=== PATIENT | female | born 1955 | race Caucasian/White ===

== ENCOUNTER 2022-11-19 09:20 | Observation (INO) ==
--- NOTE | 2022-10-22 09:40 | History & Physical Report ---
Date of Service October 22, 2022 date of surgery: 11/19/22 Procedure: Left Knee Poly Exchange Possible Revision of Total Knee Arthroplasty Surgeon: Jose Hernandes Assessment & Plan (1) Painful total knee replacement, left: Plan: Further care discussed with patient as well as with Dr. Hernandes, is recommended that patient undergo left knee polyethylene exchange with possible total knee arthroplasty given her exam, injury as well as CT scan findings. Tentative plan would be polyethylene exchange with evaluation of her implant at time of surgery. She otherwise has no other questions or concerns. Placed on aspirin 81 mg twice a day for 1 month postop DVT prophylaxis. Plan will be discharge with home health physical therapy follow-up in the office 2 weeks after surgery or sooner if she is having problems The risks and benefits have been discussed including, but not limited to, risk of infection, nerve injury, stiffness, loss of motion, failure to improve, etc. Reasonable outcomes and options of treatment were discussed. An explanation of appropriate alternatives to the procedure that may be advantageous were discussed and their risks and benefits, as well as the risks and benefits of not proceeding with treatment. I offered to answer any additional inquiries concerning the treatment involved. All the patient's questions were answered. The patient is agreeable, understanding of the treatment plan and alternatives, and wishes to proceed with the treatment plan. History of Present Illness Chief Complaint: left knee pain Primary Care Provider: Trina Dila DO Gloria is a pleasant 66-year-old female who presents for preop evaluation prior to left knee poly exchange with possible revision of her total knee arthroplasty. She initially had her knee replaced back in [address] Hernandes and was doing very well up until recently. In August of this past year she slipped and fell injuring her left knee. She was seen in the office x-rays did not show any obvious fractures or loosening of her implant, she underwent CT scan which showed possible fracture of her polyethylene post. I discussed with her the treatment options she would like to proceed with surgical intervention Allergies Allergy/AdvReac Type Severity Reaction Status Date / Time adhesive Allergy Unknown SKIN Verified 05/15/22 10:03 IRRITATION ciprofloxacin [From Cipro] Allergy Verified 05/15/22 10:03 metronidazole [From Flagyl] Allergy Verified 05/15/22 10:03 Sulfa (Sulfonamide Allergy Verified 05/15/22 10:03 Antibiotics) morphine AdvReac Severe SEVERE Verified 05/15/22 10:03 NAUSEA AND VOMITING Home Medications Medication Instructions Recorded Confirmed Type cholecalciferol (vitamin D3) 25 1,000 units PO DAILY #30 caps 04/22/19 05/15/22 Rx mcg (1,000 unit) capsule coenzyme Q10 200 mg capsule 200 mg PO DAILY 04/22/19 05/15/22 History cyanocobalamin (vitamin B-12) 1,000 mcg PO DAILY 04/22/19 05/15/22 History 1,000 mcg tablet,extended release omega-3 fatty acids [Fish Oil PO DAILY 08/01/19 05/15/22 History Concentrate] loratadine [Claritin] PO DAILY PRN 04/30/20 05/15/22 History fluticasone propionate 50 2 spray intranasal DAILY #16 grams 01/01/21 05/15/22 Rx mcg/actuation nasal spray,suspension celecoxib 200 mg capsule (Celebrex) 200 mg PO DAILY #90 caps 05/05/22 05/15/22 Rx glucosamine sulfate 2KCl 1,000 mg 1,000 mg PO DAILY 05/05/22 05/15/22 History tablet levothyroxine 50 mcg tablet 50 mcg PO DAILY #90 tabs 05/05/22 05/15/22 Rx Past Med/Surg History Medical History Acid reflux Allergic rhinitis Benign paroxysmal positional vertigo Generalized osteoarthritis of multiple sites Hypothyroidism Migraine headache Osteopenia Seasonal allergies Surgical History H/O section H/O lumpectomy History of total left knee replacement (2009) Left total knee arthroplasty with Gonzalez Nephew total joint arthroplasty utilizing sizes 4 femur, 2 tibia, 9 spacer posterior constrained, and 32 patella History of total right knee replacement (2002) Hx of hysterectomy (2010) d/t endometriosis S/P appendectomy S/P cholecystectomy S/P shoulder surgery (2007) R shoulder Family History Father Anxiety Cardiac disorder Diabetes Gallbladder disease Kidney disease Myocardial infarction age 65 Hypertension Heart disease Brother Anxiety Depression Kidney stone Mother Hypertension Dementia Grandmother Ovarian cancer age 85 Cancer Grandfather Hearing loss Denies family history of Colon cancer Prostate cancer No family history of adverse response to anesthesia No family history of bleeding disorder Allergies Breast cancer Stroke Asthma Social History Smoking Status: Never smoker Second Hand Exposure: No; Hx Alcohol Use: No Hx Substance Use: No Preferred Language: Marshallese Communication Ability: Effective Visual Impairment: No Limitations Hearing Ability: Normal Flying Ii Instructor Required: No Beliefs That Will Affect Care: None marital status: Current Living Situation: Spouse current occupational status: employed and retired current occupation: works academic department chair at [employer] How many Children do You have: 1 Feels Safe at Home: Yes Childhood Exposure to Second-Hand Smoke: No caffeine: Yes during the past year weight has: remained stable Dental Care, Regularly: Yes Physical Activity Frequency: Daily Seatbelt Use: always Sunscreen Use: No Review of Systems Review of Systems: All systems reviewed & are unremarkable except as noted in HPI & below Constitutional: no fever, no chills and no sweats Respiratory: no cough and no dyspnea Cardiovascular: no chest pain, no dyspnea and no orthopnea Gastrointestinal: no abdominal pain, no nausea and no vomiting Musculoskeletal: as per Subjective / HPI Physical Exam Constitutional: WD/WN, vitals as above no acute distress Respiratory: normal respiratory effort, lungs clear to auscultation no respiratory distress, no labored breathing and does not use accessory muscles Cardiovascular: RRR, no murmur, no edema Gastrointestinal (Abdomen): normal bowel sounds, soft, nontender, no hepatosplenomegaly Musculoskeletal: Left Knee Exam Ambulates with a limp, overall neutral alignment, there is no atrophy warmth or ecchymosis noted, mild effusion, maximum tenderness medial retinaculum. positive patellar Apprehension , no crepitation with motion, valgus stress Negative, Varus stress Negative, no Extensor lag, Pain with Active range of motion, also passive painful ROM, Range of motion 0/3/115. No pain with active/passive ROM of ankle. Lower Extremity Strength normal. Lower Extremity Neuro-vascular is normal Results & Data Results & Data ([facility]) Diagnostic Findings LEFT KNEE 3 VIEWS History: Left total knee arthroplasty. Degenerative arthritis. Postop. FINDINGS: The patient is status post a left total knee arthroplasty. The hardware is intact. No fracture or dislocation. IMPRESSION: Left total knee arthroplasty. No evidence for hardware complication.
--- NOTE | 2022-10-29 09:03 | PAT Medication Instructions ---
Medication Instructions Date of Service October 29, 2022 Home Medications Medication Instructions Recorded cholecalciferol (vitamin D3) 25 1,000 units PO DAILY #30 caps 04/22/19 mcg (1,000 unit) capsule fluticasone propionate 50 2 spray intranasal DAILY #16 grams 01/01/21 mcg/actuation nasal spray,suspension celecoxib 200 mg capsule (Celebrex) 200 mg PO DAILY #90 caps 05/05/22 levothyroxine 50 mcg tablet 50 mcg PO DAILY #90 tabs 05/05/22 cholecalciferol (vitamin D3) 25 mcg (1,000 unit) capsule 1,000 units PO DAILY coenzyme Q10 200 mg capsule 200 mg PO QAM cyanocobalamin (vitamin B-12) 1,000 mcg tablet,extended release 1,000 mcg PO QAM fluticasone propionate 50 mcg/actuation nasal spray,suspension 2 spray intranasal DAILY celecoxib 200 mg capsule (Celebrex) 200 mg PO DAILY levothyroxine 50 mcg tablet 50 mcg PO DAILY calcium 600 mg capsule 600 mg PO QPM loratadine 10 mg tablet (Claritin) 10 mg PO DAILY PRN Allergy Symptoms magnesium 200 mg tablet 400 mg PO QPM ASK your surgeon for instructions celecoxib 200 mg capsule (Celebrex) 200 mg PO DAILY STOP taking 2 weeks before surgery (or as soon as possible if surgery is within 2 weeks) coenzyme Q10 200 mg capsule 200 mg PO QAM DO NOT take the morning of surgery cholecalciferol (vitamin D3) 25 mcg (1,000 unit) capsule 1,000 units PO DAILY cyanocobalamin (vitamin B-12) 1,000 mcg tablet,extended release 1,000 mcg PO QAM loratadine 10 mg tablet (Claritin) 10 mg PO DAILY PRN Allergy Symptoms Take morning of surgery With a small sip of water, OTHERWISE NOTHING TO EAT OR DRINK AFTER MIDNIGHT: fluticasone propionate 50 mcg/actuation nasal spray,suspension 2 spray intranasal DAILY levothyroxine 50 mcg tablet 50 mcg PO DAILY Take evening before surgery calcium 600 mg capsule 600 mg PO QPM loratadine 10 mg tablet (Claritin) 10 mg PO DAILY PRN Allergy Symptoms (if needed) magnesium 200 mg tablet 400 mg PO QPM Other Notes If you have any questions please call us at [phone] or [phone] or [phone] or [phone]
--- NOTE | 2022-11-03 13:39 | Anesthesiology Consultation ---
Date of Service November 03, 2022 Assessment & Plan (1) Encounter for pre-operative examination: Chart Review Chart Review: Acceptable Risk for Surgery and Patient seen in Pre Admission Testing Pt not Same Day Joint candidate secondary to procedure type Per [facility] appt on 11/03/22, patient denies any recent travel or large group activities. Pt is NOT vaccinated for Covid. Will leave to surgeon's discretion if preop Covid testing needed. Educated on importance of using Covid precautions one week prior to surgery Teaching & Discussion Pre-Anesthesia Teaching/Discussion Notes: Instructed NPO after midnight before surgery,except medications with 15 cc of water. Medication instructions provided according to the [facility] guidelines. History Surgery Operation Date: 11/19/22 09:20 Proposed Procedures p Left Knee Poly Exchange Possible Revision of Total Knee Arthroplasty - Jose Hernandes DO Height/Weight Height: 5 ft 2 in Weight: 77.5 kg Allergies Allergy/AdvReac Type Severity Reaction Status Date / Time ciprofloxacin [From Cipro] Allergy Intermediate Hives Verified 10/28/22 13:31 metronidazole [From Flagyl] Allergy Intermediate Hives Verified 10/28/22 13:31 Sulfa (Sulfonamide Allergy Intermediate ANGIOEDEMA Verified 11/03/22 13:33 Antibiotics) adhesive Allergy Unknown SKIN Verified 10/28/22 13:31 IRRITATION morphine AdvReac Severe SEVERE Verified 10/28/22 13:31 NAUSEA AND VOMITING Medications Home Medications Medication Instructions Recorded Confirmed Last Taken cholecalciferol (vitamin D3) 25 1,000 units PO DAILY #30 caps 04/22/19 10/28/22 Unknown mcg (1,000 unit) capsule coenzyme Q10 200 mg capsule 200 mg PO QAM 04/22/19 10/28/22 Unknown cyanocobalamin (vitamin B-12) 1,000 mcg PO QAM 04/22/19 10/28/22 Unknown 1,000 mcg tablet,extended release fluticasone propionate 50 2 spray intranasal DAILY #16 grams 01/01/21 10/28/22 Unknown mcg/actuation nasal spray,suspension celecoxib 200 mg capsule (Celebrex) 200 mg PO DAILY #90 caps 05/05/22 10/28/22 Unknown levothyroxine 50 mcg tablet 50 mcg PO DAILY #90 tabs 05/05/22 10/28/22 Unknown calcium 600 mg capsule 600 mg PO QPM 10/28/22 10/28/22 Unknown loratadine 10 mg tablet (Claritin) 10 mg PO DAILY PRN Allergy Symptoms 10/28/22 10/28/22 Unknown magnesium 200 mg tablet 400 mg PO QPM 10/28/22 10/28/22 Unknown Past Medical History Medical History Acid reflux Well controlled and stable Hypothyroidism Migraine headache Nausea and vomiting after administration of anesthetic agent Osteopenia Exercise / Class Metabolic Activity II 4-5 Yardwork/Stairs/Walk up hill (one flight of stairs - no chest pain or SOB) Past Family History Family History Father Anxiety Cardiac disorder Diabetes Gallbladder disease Kidney disease Myocardial infarction age 65 Hypertension Heart disease Brother Anxiety Depression Kidney stone Mother Hypertension Dementia Grandmother Ovarian cancer age 85 Cancer Grandfather Hearing loss Denies family history of Colon cancer Prostate cancer No family history of adverse response to anesthesia No family history of bleeding disorder Allergies Breast cancer Stroke Asthma Past Surgical History Surgical History (Updated 11/03/22 @ 14:00 by Nazia Shields PA-C) H/O arthroscopic knee surgery Right knee- 1995, 2001 H/O section H/O lumpectomy History of hand surgery Left [facility] 2011 Right [facility] 2016 History of total left knee replacement (2009) Left total knee arthroplasty with Gonzalez Nephew total joint arthroplasty utilizing sizes 4 femur, 2 tibia, 9 spacer posterior constrained, and 32 patella History of total right knee replacement (2002) Hx of colonoscopy Hx of hysterectomy (2010) d/t endometriosis S/P appendectomy S/P cholecystectomy S/P shoulder surgery (2007) R shoulder Past Anesthesia History No Hx of Anesthesia Complications (with exception to PONV ) and No Family Hx of Anesthesia Complications History of PONV History of PONV and Hx of Motion Sickness Social History Smoking Status: Never smoker Do You Dip or Chew Tobacco: No Hx Alcohol Use: Yes alcohol intake frequency: holidays/special occasions only Hx Substance Use: No substance use type: does not use Review of Systems Hx of snoring- possible witnessed apnea- no hx of sleep study Patient denies chest pain, shortness of breath, dyspnea on exertion, cough, wheezing, palpitations. No hx of seizures, stroke, DC. No hx of blood clots or blood transfusions Physical Exam Vital Signs VITALS BP 144/76 P 64 TEMP 97.9 SP02 98% RESP 16 Constitutional no acute distress ENMT Mouth: no TMJ clicking Thyromental Distance: < 3.5 Finger Breadths (3.0) Mallampati Class: I Capped to bottom front tooth Neck neck extension not limited Respiratory normal respiratory effort; no respiratory distress Auscultation: lungs clear to auscultation bilaterally; no wheezes Cardiovascular Rate/Rhythm: regular rate and regular rhythm Heart Sounds: no murmur Vessels: no carotid bruit Musculoskeletal Spine: no pain with cervical ROM Extremities: extremities normal to inspection Psychiatric Orientation: alert Lab Results Anesthesia Preop Results Results Anesthesia Widget: WBC 10.06 K/ul (4.8-10.8) 11/03/22 Hgb 13.8 g/dl (12.0-16.0) 11/03/22 Hct 41.4 % (37.0-47.0) 11/03/22 Plt 393 K/uL (130-400) 11/03/22 Na 140 mmol/L (136-145) 11/03/22 K 4.2 mmol/L (3.5-5.1) 11/03/22 Cl 103 mmol/L (98-107) 11/03/22 CO2 35 mmol/L (21-32) H 11/03/22 BUN 18 mg/dl (6-23) 11/03/22 Creat 1.04 mg/dl (0.6-1.2) 11/03/22 Glucose Level 89 mg/dl (70-99(Fasting)) 11/03/22 PT 10.5 Seconds (9.0-12.0) 11/03/22 PTT 26.8 Seconds (21.0-31.0) 11/03/22 INR 1.0 (0.9-1.1) 11/03/22 HA1c 5.5 % (4.5-5.6) 11/03/22 Urine Color Yellow 11/03/22 Urine Appearance Clear (Clear) 11/03/22 Urine pH 7.0 (4.5-7.5) 11/03/22 Urine Specific [place] 1.009 (1.000-1.030) 11/03/22 Urine Protein Negative (Negative) 11/03/22 Urine Glucose (UA) Negative (Negative) 11/03/22 Urine Ketones Negative (Negative) 11/03/22 Urine Blood Negative (Negative) 11/03/22 Urine Nitrite Negative (Negative) 11/03/22 Urine Bilirubin Negative (Negative) 11/03/22 Urine Urobilinogen Negative (Negative) 11/03/22 Urine Leukocyte Esterase Negative (Negative) 11/03/22 Blood Type B Positive 11/03/22 Antibody Screen NEGATIVE 11/03/22 Testing Electrocardiogram Date: 11/03/22 Findings: + SB @ (59bpm) Otherwise normal EKG per cardio Chest X-Ray Date: 11/03/22 Findings: + NAD COVID-19 Risk Screen Screening Information COVID-19 Screen Date: 11/03/22 Exposure 21 Days Family/Household +COVID Last 21 Days: No Exposure 10 Days Any COVID Exposure Last 10 Days: No Symptoms Last 10 Days Experienced COVID Sx Last 10 Days: No + COVID 0-90 Days COVID + in Last 0-90 Days: No Risk Plan COVID Risk Plan: No Risk Identified Patient Education COVID Preop Screening Education Complete: Yes
[~2022-11-19 09:20] MED LIST: ACETAMINOPHEN 500 MG TAB PO SCH; BUPIVACAINE 0.25% 30 ML VIAL ONE; BUPIVACAINE 0.5 % 5 MG/1 ML PF 10ML VIAL ONE; CeleBREX 200 MG CAP PO SCH; FAMOTIDINE 20 MG TAB PO SCH; GABAPENTIN 600 MG DOSE PO SCH; LR 500ML BOLUS, THEN 15ML/HR IV SCH; METOCLOPRAMIDE HCL 10 MG TABLET PO SCH; ROPIVACAINE 0.5% HCL/PF 150 MG, BUPIVACAINE 0.75% MPF 20 ML, EPINEPHrine 0.15 MG, Ketor... INFIL SCH; ceFAZolin 2000MG 2,000 MG/15 ML SYR IV SCH; dexAMETHasone 4 MG TAB PO SCH
[2022-11-19] MEDS ORDERED: PROPOFOL IV EMULSION 10 MG/ML 20 ML VIAL IV ONE ×2 (09:57→12:49)
[2022-11-19] MEDS ORDERED: MIDAZOLAM HCL 1 MG/ML 2ML VIAL ONE (09:57)
[2022-11-19] MEDS ORDERED: TRANEXAMIC ACID / 0.7% NACL 1,000 MG/100 ML BAG IV ONE ×2 (10:52→11:00)
--- NOTE | 2022-11-19 11:00 | History & Physical Bridge Note ---
Date of Service November 19, 2022 History & Physical Bridge Note I have examined the patient, reviewed the History & Physical and in the interval since the performance of the History & Physical I have noted the following changes of clinical significance: no changes noted
[2022-11-19] MEDS ORDERED: ePHEDrine sulfate 50 MG/ML AMP IV PRN (11:39)
[2022-11-19] MEDS ORDERED: ATROPINE SULFATE 0.1 MG/ML 10ML SYR IV PRN (11:39)
[2022-11-19] MEDS ORDERED: fentaNYL citrate 100 MCG/2 ML VIAL IV PRN (11:39)
[2022-11-19] MEDS ORDERED: ONDANSETRON INJ 2 MG/ML 2 ML VIAL IV PRN ×2 (11:39→15:17)
--- NOTE | 2022-11-19 13:08 | Operative Report ---
Post Operative Report Pre & Post Diagnosis Operation Date: 11/19/22 11:40 Pre-Op Diagnosis: Painful total knee replacement, left Post-Op Diagnosis: Painful total knee replacement, left with broken polypost journey 1 total knee arthroplasty Gonzalez & Delfino Nolasco identified the patient and participated in the time-out.: Yes Procedure Operation Date: 11/19/22 11:40 Actual Procedures p Left Knee Poly Exchange of Total Knee Arthroplasty(Left) to size 13 x 6 left poly insert- Jose Hernandes DO Surgeon Jose Hernandes DO Virtualization Engineer LORA Roper Estimated Blood Loss 5 Findings Consistent with Post-Op Diagnosis Patient presents after previous undergoing a left total knee arthroplasty greater than left 10 years ago was doing remarkably well until suddenly felt a pop in her knee with instability and pain that occurred and that 1 incident she denies having any particular traumatic event to it her clinical examination preoperatively was consistent with that of a broken post she had no solid posterior drawer stop sign no palpable clunk she did have also laxity medially and laterally her x-rays were not consistent with that of loosening or other process Specimens Broken polypost Drains None Anesthesia Type MAC Spinal Regional Complications none Disposition Accompanied Patient To Recovery: No Disposition: Recovery Room Indications Patient presents with a clinical examination is that of a broken post and a small effusion with ongoing pain and instability Description of Procedure After initiation of regional anesthesia the left lower extremity subsequently prepped in sterile fashion for surgery of this type utilizing anterior midline incision in the region of the previous incision dissection carried down to the subcutaneous tissues meticulous hemostasis was obtained and maintained at all times a medial parapatellar incision was made the post and poly was evaluated there is complete 100% fracture of the post at the base which was sitting in the notch there was some delaminated polyethylene that was from floating freely within the knee joint the wound was irrigated the knee joint was irrigated up with a broken polywas removed the post was removed meticulous synovectomy the areas of synovitis was performed operative matter debris removed the tibial femoral and patellar components were all inspected notes of loosening was noted subsequently a trial to a size 13 was placed gave excellent stability and full extension mid flexion flexion medial lateral instability was corrected the posterior instability was corrected socially the final component was brought onto the field after thorough irrigation debridement lavage meticulous hemostasis of all synovial tissue the final poly was subsequently placed range of motion full extension flexion 145 degrees stability throughout all ranges including mid flexion subsequently the medial retinaculum closed #1 Vicryl subcu was closed with 2-0 Vicryl skin was closed with a running V lock and Greta sterile compressive dressing was placedDue to the complex nature of the procedure, the entire surgery was performed with the operational assistance of LORA Roper. The real estate administrative assistant, under direct supervision, was involved in the actual performance of all aspects of the surgical procedure including hemostasis, tissue retraction and incision, instrument management, patient positioning, and wound closure. I attest to the content of the Intraoperative Record and any orders documented therein. Any exceptions are noted below.
--- NOTE | 2022-11-19 15:01 | XRay Report ---
XR knee LT 1 or 2V routine HISTORY: 67 years-old Female Surgical Post Op left knee arthroplasty COMPARISON: None TECHNIQUE: 2 views of the left knee FINDINGS: Total joint arthroplasty with patellar resurfacing. Anterior midline skin hakan with expected posto perative soft tissue swelling and deep tissue air. No acute fracture, dislocation or opaque foreign b fredo. IMPRESSION: Total joint arthroplasty with expected postoperative changes. ACT 112: Negative or not required by law. The above report was generated using voice recognition software. It may contain grammatical, syntax o r spelling errors. Electronically signed by: Lincoln Hernandez M.D. 11/19/2022 3:00 PM
[2022-11-19] MEDS ORDERED: HYDROmorphone INJ 1 MG/ML SYRINGE IV PRN (15:17)
[2022-11-19] MEDS ORDERED: METOCLOPRAMIDE HCL INJ 5 MG/ML 2 ML VIAL IV PRN (15:17)
[2022-11-19] MEDS ORDERED: oxyCODONE HCL IR 5 MG TAB (IMMEDIATE RELEASE) PO PRN (15:17)
[2022-11-19] MEDS ORDERED: LORATADINE 10 MG TAB PO PRN (15:17)
[2022-11-19] MEDS ORDERED: NALOXONE HCL 0.4 MG/1 ML VIAL/CARP IV PRN (15:17)
[2022-11-19] MEDS ORDERED: bisacodyL 10 MG SUPP PR PRN (15:17)
[2022-11-19] MEDS ORDERED: MAGNESIUM HYDROXIDE SUSP 30 ML UDC PO PRN (15:17)
[2022-11-19] MEDS ORDERED: diphenhydrAMINE Capsule 25 MG CAP PO PRN (15:17)
--- NOTE | 2022-11-19 15:34 | Anesthesiology Progress Note ---
Date of Service November 19, 2022 Anesthesia Post Procedure Vital Signs Vital Signs: Temp Pulse Pulse Resp BP Pulse Ox O2 Del Method 11/19/22 15:15 36.4 C L 78 18 101/64 100 Room Air 11/19/22 15:10 74 13 101/57 L 98 Room Air 11/19/22 14:55 73 14 104/58 L 99 Room Air 11/19/22 14:40 36.8 C 75 15 102/52 L 97 Room Air 11/19/22 14:30 71 13 98/60 L 97 Room Air 11/19/22 14:20 71 14 98/58 L 99 Room Air 11/19/22 14:10 79 13 97/60 L 98 Room Air 11/19/22 14:00 80 15 101/60 99 Room Air 11/19/22 13:50 81 12 105/83 100 Oxymask 11/19/22 13:40 81 25 H 107/68 100 Oxymask 11/19/22 13:32 36.6 C 86 14 113/59 L 95 Oxymask 11/19/22 10:00 36.4 C L 63 20 160/80 H 99 Room Air O2 Flow Rate 11/19/22 15:15 11/19/22 15:10 11/19/22 14:55 11/19/22 14:40 11/19/22 14:30 11/19/22 14:20 11/19/22 14:10 11/19/22 14:00 11/19/22 13:50 3 11/19/22 13:40 5 11/19/22 13:32 7 11/19/22 10:00 Transfer of Care Handoff Completed per policy Notes Mental Status: alert / awake / arousable and participated in evaluation Patient Amnestic to Procedure: Yes Nausea / Vomiting: adequately controlled Pain: adequately controlled Airway Patency, RR, SpO2: stable & adequate BP & HR: stable & adequate Hydration State: stable & adequate Neuraxial Anesthesia: was administered and sensory block is resolving Anesthetic Complications: no major complications apparent and Pt Satisfied with anesthetic care
[2022-11-19] MEDS: SODIUM CHLORIDE 0.9% 1000ML 1,000 ML IV SCH (16:22)
[2022-11-19] MEDS: ACETAMINOPHEN 500 MG TAB PO SCH ×2 (16:24→22:31)
[2022-11-19] MEDS: KETOROLAC TROMETHAMINE 15 MG/ML VIAL IV SCH ×2 (16:26→22:31)
[2022-11-19] MEDS: DOCUSATE SODIUM 100 MG CAP PO SCH (20:48)
[2022-11-19] MEDS: ASPIRIN 81 MG ECTAB PO SCH (20:49)
[2022-11-19] MEDS: ceFAZolin 2000MG 2,000 MG/15 ML SYR IV SCH (20:52)
[2022-11-19] MEDS ORDERED: MAGNESIUM OXIDE 400 MG TAB PO SCH (21:00)
[2022-11-19] MEDS ORDERED: SENNA 8.6 MG TAB PO SCH (21:00)
[2022-11-19] MEDS ORDERED: CALCIUM CARBONATE 1250MG TAB PO SCH (21:00)
[2022-11-20] MEDS: KETOROLAC TROMETHAMINE 15 MG/ML VIAL IV SCH ×2 (03:16→09:38)
[2022-11-20] MEDS: ceFAZolin 2000MG 2,000 MG/15 ML SYR IV SCH (03:16)
[2022-11-20] MEDS: SODIUM CHLORIDE 0.9% 1000ML 1,000 ML IV SCH (03:46)
[2022-11-20] MEDS: ACETAMINOPHEN 500 MG TAB PO SCH (06:07)
[2022-11-20] MEDS ORDERED: LEVOTHYROXINE SODIUM 50 MCG TABLET PO SCH (06:30)
--- NOTE | 2022-11-20 06:32 | Orthopedic Progress Note ---
Date of Service November 20, 2022 Assessment & Plan (1) Painful total knee replacement, left: Plan: POD #1 s/p Left Knee Poly Exchange of Total Knee Arthroplasty(Left) to size 13 x 6 left poly insert pt/ot dvt proph with CATRINA/SCD/ASA plan for d/c home with HHPT Admission and Anticipated Discharge Date Admission Date: November 19, 2022 Subjective POD #1 s/p Left Knee Poly Exchange of Total Knee Arthroplasty(Left) to size 13 x 6 left poly insert Review of Systems Constitutional: no fever, no chills and no sweats Respiratory: no cough and no dyspnea Cardiovascular: no chest pain and no dyspnea Gastrointestinal: no abdominal pain, no nausea and no vomiting Physical Exam Physical Exam: Vital Signs Temp 36.4 C L 11/20/22 03:00 Pulse 57 L 11/20/22 03:00 Resp 16 11/20/22 03:00 BP 115/67 11/20/22 03:00 Pulse Ox 99 11/20/22 03:00 O2 Del Method Room Air 11/20/22 03:00 O2 Flow Rate 3 11/19/22 13:50 Intake & Output 11/19/22 11/19/22 11/20/22 06:59 18:59 06:59 Intake Total 2600 / 4140 1540 / 4140 Output Total 10 / 810 800 / 810 Balance 2590 / 3330 740 / 3330 Weight 75 kg Intake: IV 200 / 1200 1000 / 1200 Lactated Ringe r's 1,000 ml @ 15 0 / 0 mls/hr IV .Q24 H DAXA Rx#: [id number] Sodium Chlorid e 0.9% 1000ML 1, 1000 / 1000 000 ml @ 100 m ls/hr IV .Q10H DAXA Rx#:[id number] Tranexamic Aci d / 0.7% NaCl 1, 200 / 200 000 mg In 100 ml @ 600 mls/hr IV ONE ONE Rx# :[id number] IV Perioperative 2400 / 2400 Oral 540 / 540 Output: Urine 800 / 800 Estimated Blood Loss 10 / 10 Other: # Unmeasured Voi ds 1 Weight Measureme nt Method Standing Scale Musculoskeletal: Left Leg: NVDI, calf SNT, negative sandi sign. DP palpable, able to wiggle toes/ankle movement without difficulty. dressing clean dry and intact. Results & Data ([facility]) Vital Signs (Past 12 Hours) Vital Signs Temp Pulse Pulse Resp BP Pulse Ox O2 Del Method 11/20/22 03:00 36.4 C L 57 L 16 115/67 99 Room Air 11/19/22 23:20 36.5 C 64 18 107/66 96 Room Air 11/19/22 19:39 36.4 C L 70 16 126/65 99 Room Air Laboratory Results Laboratory Results SARS-CoV-2, RNA, NAAT NEGATIVE (NEGATIVE) 11/19/22 09:40 Blood Type B Positive 11/19/22 09:50 Antibody Screen NEGATIVE 11/19/22 09:50 Impressions Knee X-Ray 11/19/22 13:37 XR knee LT 1 or 2V routine HISTORY: 67 years-old Female Surgical Post Op left knee arthroplasty COMPARISON: None TECHNIQUE: 2 views of the left knee FINDINGS: Total joint arthroplasty with patellar resurfacing. Anterior midline skin hakan with expected postoperative soft tissue swelling and deep tissue air. No acute fracture, dislocation or opaque foreign body. IMPRESSION: Total joint arthroplasty with expected postoperative changes. ACT 112: Negative or not required by law. The above report was generated using voice recognition software. It may contain grammatical, syntax or spelling errors. Electronically signed by: Lincoln Hernandez M.D. 11/19/2022 3:00 PM
--- NOTE | 2022-11-20 07:04 | Discharge Summary ---
Date of Service Date of discharge: November 20, 2022 date of admission: 11-19-22 Admission HPI Per Admitting Provider Gloria is a pleasant 66-year-old female who presents for preop evaluation prior to left knee poly exchange with possible revision of her total knee arthroplasty. She initially had her knee replaced back in [address] West and was doing very well up until recently. In August of this past year she slipped and fell injuring her left knee. She was seen in the office x-rays did not show any obvious fractures or loosening of her implant, she underwent CT scan which showed possible fracture of her polyethylene post. I discussed with her the treatment options she would like to proceed with surgical intervention Principal Diagnosis broken poly left knee Discharge Exam Vital Signs Temp 36.4 C L 11/20/22 03:00 Pulse 57 L 11/20/22 03:00 Resp 16 11/20/22 03:00 BP 115/67 11/20/22 03:00 Pulse Ox 99 11/20/22 03:00 O2 Del Method Room Air 11/20/22 03:00 O2 Flow Rate 3 11/19/22 13:50 Intake & Output 11/19/22 11/19/22 11/20/22 06:59 18:59 06:59 Intake Total 2600 / 4140 1540 / 4140 Output Total 10 / 810 800 / 810 Balance 2590 / 3330 740 / 3330 Weight 75 kg Intake: IV 200 / 1200 1000 / 1200 Lactated Ringer's 1,000 ml @ 15 0 / 0 mls/hr IV .Q24H DAXA Rx#: [id number] Sodium Chloride 0.9% 1000ML 1, 1000 / 1000 000 ml @ 100 mls/hr IV .Q10H DAXA Rx#:[id number] Tranexamic Acid / 0.7% NaCl 1, 200 / 200 000 mg In 100 ml @ 600 mls/hr IV ONE ONE Rx#:[id number] IV Perioperative 2400 / 2400 Oral 540 / 540 Output: Urine 800 / 800 Estimated Blood Loss 10 / 10 Other: # Unmeasured Voids 1 Weight Measurement Method Standing Scale Musculoskeletal left knee: NVDI, calf SNT, negative sandi sign. DP palpable, able to wiggle toes/ankle movement without difficulty. dressing clean dry and intact. Discharge Data Allergies Allergy/AdvReac Type Severity Reaction Status Date / Time ciprofloxacin [From Cipro] Allergy Intermediate Hives Verified 11/19/22 09:52 metronidazole [From Flagyl] Allergy Intermediate Hives Verified 11/19/22 09:52 Sulfa (Sulfonamide Allergy Intermediate ANGIOEDEMA Verified 11/19/22 09:52 Antibiotics) adhesive Allergy Unknown SKIN Verified 11/19/22 09:52 IRRITATION morphine AdvReac Severe SEVERE Verified 11/19/22 09:52 NAUSEA AND VOMITING Procedures Performed Operation Date: 11/19/22 11:40 Actual Procedures p Left Knee Poly Exchange of Total Knee Arthroplasty(Left) - Jose West DO Ordered Studies 11/19/22 05:00 US - OR guided needle placemen Routine Hospital Course (1) Painful total knee replacement, left: POD #1 s/p Left Knee Poly Exchange of Total Knee Arthroplasty(Left) to size 13 x 6 left poly insert pt/ot dvt proph with CATRINA/SCD/ASA plan for d/c home with HHPT Total Time Total Time Spent Total Time Spent (In Minutes): 20 Discharge Plan Discharge Items Patient Disposition: Home - Home Health Services Reason For Visit: Left Knee Retained Orthopedic Hardware, Chronic Kn Discharge Diagnosis: left knee poly exchange Activity: Per Instructions section Weightbearing Comment: WBAT with walker Non-emergency contact: Surgeon Call non-emergency contact if: you have any medication questions, your temperature is above 101, your wound has increased redness, your wound has increased drainage and your wound pain has increased Follow-up/Referrals: Trina Dial DO [Primary Care Provider] - Diet: Regular Addtl Attending Provider Instructions: ACTIVITY RECOMMENDATIONS: SELF CARE INSTRUCTIONS AFTER POLY EXCHANGE A. You may need to continue a physical therapy program after discharge from the hospital. There are several options available to you. Your doctor will assist you in selecting the best one for you. 1. An out-patient facility 2 to 3 times a week for therapy or home therapy. 2. Continue working on all exercises taught to you in the hospital. Your goals should be to increase bending of your knee to 90 degrees and beyond and to fully straighten your knee. B. You may progress at your own pace from walking with a walker or crutches to a cane; then to no assistive devices. C. Make walking a part of your daily routine. Be up as much as comfortable with rest periods throughout the day. Rest with leg elevation is very important. Use the ice wrap frequently for the first 3-4 weeks. D. There are no restrictions on activities. You may ride in a car, shop, participate in hospice admitting clerk and all social activities. E. Wear the long elastic stockings (CATRINA hose) 20 hours a day for 2 weeks after surgery. They can be removed several times a day for laundering and for a bath. F. You may shower, no tub baths until cleared by your doctor. SPECIAL CARE INSTRUCTIONS: VERY IMPORTANT TO READ AND REVIEW A. There are a few signs you need to watch for after you are home. Call [facility] if you notice any of the followin. Increased severe knee pain. Some pain is expected especially when you exercise. 2. Increased swelling in your leg or knee; pain or swelling of the calf muscle in either lower leg. 3. Any fluid drainage from the incision. 4. Shortness of breath or chest pain. B. Please call [facility] at if you have any concerns or questions about your operation or recovery. The doctor or his nurse will return your call promptly. C. You must take antibiotics before dental work, bladder, bowel or other surgery. Your doctor will provide you with a permanent care to carry describing this precaution. IMPORTANT: * REMEMBER TO TAKE ASPIRIN, 81 MG, TWICE DAILY FOR 4 WEEKS UNLESS OTHERWISE DIRECTED. THIS IS YOUR BLOOD THINNER. * HIGH RISK PATIENTS MAY BE PRESCRIBED A STRONGER BLOOD THINNER. THIS WILL BE PROVIDED AT DISCHARGE. * CALL IF INCREASED PAIN, REDNESS, DRAINAGE OR FEVER GREATER THAT 101. * WEAR CATRINA HOSE 20 HOURS PER DAY FOR 2 WEEKS. * CHINTAN Dressing- This is a large suction dressing covering your incision. This will help pull any excess drainage from the wound and allow your incision to heal properly. You may shower with this if you can keep the unit outside of the shower. If any bleeding or leakage is noted please call your doctor's office. This will remain on your incision for 7 days and then should be removed. This can be done yourself or by the home nursing staff if applicable. The entire unit is disposable once removed. Once removed, keep incision clean and dry. If redness or drainage is noted, please call your surgeon. FOLLOW UP VISIT: If appointment is not already scheduled: Please call [facility] to make a follow-up appointment for 2 weeks after your surgery at . Pending Studies at Discharge: No Stand-Alone Forms: My [facility] Medications and DC Order Prescriptions: New acetaminophen [Tylenol Extra Strength] 500 mg Tablet 1,000 mg PO Q8 21 Days Qty: 126 0RF aspirin 81 mg Tablet,Delayed Release (Dr/Ec) 81 mg PO BID 30 Days Qty: 60 0RF oxycodone 5 mg Tablet 5 - 10 mg PO Q4H PRN (Reason: pain) Qty: 30 0RF Rx Instructions: ongoing therapy, supervising dr lili west. max 6 tabs in 24 hours cefadroxil 500 mg capsule 500 mg PO BID 14 Days Qty: 28 0RF Continued fluticasone propionate 50 mcg/actuation spray,suspension 2 spray intranasal DAILY Qty: 16 2RF Rx Instructions: administer into each nostril cholecalciferol (vitamin D3) 25 mcg (1,000 unit) capsule 10 mcg PO DAILY vitamin B complex [B Complex-Vitamin B12] Tablet 1 tab PO DAILY celecoxib [Celebrex] 200 mg capsule 200 mg PO DAILY Qty: 90 1RF levothyroxine 50 mcg tablet 50 mcg PO DAILY Qty: 90 1RF calcium 600 mg Capsule 600 mg PO QPM magnesium 200 mg Tablet 400 mg PO QPM loratadine [Claritin] 10 mg Tablet 10 mg PO DAILY PRN (Reason: Allergy Symptoms) Discontinued coenzyme Q10 200 mg capsule 200 mg PO QAM Admission Data Admit Date/Time: 11/19/22 13:37 Attending Provider: Jose West Admit Provider: Jose West Primary Care Provider: Trina Dial
[2022-11-20 07:27] LABS: Hematocrit (blood only) 35.7 % (37.0-47.0); Hemoglobin 12.3 g/dl (12.0-16.0); Mean Corpuscular Hemoglobin 31.4 pg (25.0-34.0); Mean Corpuscular Hgb Conc 34.5 g/dL (32.0-36.0); Mean Corpuscular Volume 91.1 fL (80.0-100.0); Mean Platelet Volume 9.8 fL (9.4-12.4); Platelet Count 398 K/uL (130-400); RDW Coefficient of Variation 13.6 % (11.5-14.5); RDW Standard Deviation 45.2 fL (36.4-46.3); Red Blood Count 3.92 M/uL (4.20-5.40); White Blood Count 21.07 K/ul (4.8-10.8)
[2022-11-20 07:51] LABS: Calcium 9.4 mg/dl (8.5-10.1); Est GFR (African American) 78.3 ml/min; Est GFR (Non-African American) 67.5 ml/min; Potassium 4.3 mmol/L (3.5-5.1)
[2022-11-20] MEDS: DOCUSATE SODIUM 100 MG CAP PO SCH (08:43)
[2022-11-20] MEDS: ASPIRIN 81 MG ECTAB PO SCH (08:44)
[2022-11-20] MEDS ORDERED: CHOLECALCIFEROL 1,000 UNITS 25 MCG TAB PO SCH (09:00)
[2022-11-20] MEDS ORDERED: MULTIVITAMIN TAB PO SCH (09:00)
[2022-11-20] MEDS ORDERED: VITAMIN B COMPLEX TAB PO SCH (09:00)
[2022-11-20] MEDS ORDERED: FLUTICASONE PROPIONATE NA SPR 16 GM BTL SCH (09:00)
== END 2022-11-20 11:58 | disposition home health service (06) ==
LOC: 3E 09:20 → ASU 09:20

== ENCOUNTER 2024-07-19 10:03 | Inpatient (IN) ==
--- NOTE | 2024-06-10 09:38 | PAT Medication Instructions ---
Medication Instructions Date of Service June 10, 2024 Home Medications Medication Instructions Recorded epinephrine 0.3 mg/0.3 mL 0.3 mg (0.3 mL) IM Q10M PRN 12/03/23 injection, auto-injector (EpiPen anaphylaxis #2 ea 2-Roger) celecoxib 200 mg capsule (Celebrex) 200 mg PO DAILY #90 caps 04/11/24 levothyroxine 50 mcg tablet 50 mcg PO QAM #90 tabs 04/11/24 loratadine 10 mg tablet (Claritin) 10 mg PO DAILY PRN magnesium 200 mg tablet 400 mg PO QPM calcium carbonate 600 mg-vitamin D3 5 mcg (200 unit) tablet 1 tab PO DAILY fluticasone propionate 50 mcg/actuation nasal spray,suspension 2 spray intranasal DAILY PRN multivitamin 1 tab PO DAILY cod liver oil 1 tab PO DAILY coenzyme Q10 100 mg capsule (Co Q-10) 100 mg PO DAILY epinephrine 0.3 mg/0.3 mL injection, auto-injector (EpiPen 2-Roger) 0.3 mg (0.3 mL) IM Q10M PRN celecoxib 200 mg capsule (Celebrex) 200 mg PO DAILY levothyroxine 50 mcg tablet 50 mcg PO QAM Continue as directed fluticasone propionate 50 mcg/actuation nasal spray,suspension 2 spray intranasal DAILY PRN(if needed) epinephrine 0.3 mg/0.3 mL injection, auto-injector (EpiPen 2-Roger) 0.3 mg (0.3 mL) IM Q10M PRN(if needed) ASK your prescriber and surgeon celecoxib 200 mg capsule (Celebrex) 200 mg PO DAILY STOP taking 2 weeks before surgery (or as soon as possible if surgery is within 2 weeks) cod liver oil 1 tab PO DAILY coenzyme Q10 100 mg capsule (Co Q-10) 100 mg PO DAILY DO NOT take the morning of surgery loratadine 10 mg tablet (Claritin) 10 mg PO DAILY PRN calcium carbonate 600 mg-vitamin D3 5 mcg (200 unit) tablet 1 tab PO DAILY multivitamin 1 tab PO DAILY Take morning of surgery With a small sip of water, OTHERWISE NOTHING TO EAT OR DRINK AFTER MIDNIGHT: levothyroxine 50 mcg tablet 50 mcg PO QAM Take evening before surgery magnesium 200 mg tablet 400 mg PO QPM Other Notes If you have any questions please call us at [phone] or [phone] or [phone] or [phone]
--- NOTE | 2024-06-16 09:09 | Anesthesiology Consultation ---
Date of Service June 16, 2024 Assessment & Plan (1) Encounter for pre-operative examination: - PCP pre-op 06/16/24 MN: "...As per HPI patient planning to undergo L4-5 decompression and fusion with Dr. Franklin on 07/19/2024. Her chronic medical conditions are stable at this point. Blood pressure is within normal limits. She has overall been feeling well. Her hypothyroidism has been stable. She is fairly physically active with no cardiopulmonary issues. I believe she is at low risk to proceed with surgery at this point..." - difficult IV stick, requests IV team which was marked on OR sheet. - patient anesthesia concerns: patient reports family h/o dementia and inquires if receiving anesthesia might precipitate this in herself. We discussed anesthesia for this surgery and she states that she is not experiencing any memory changes or having any issues. I discussed this with Dr. Allen who advised the only anesthesia option is general anesthesia. Patient expressed comfort with this plan. Final discussion will be with anesthesiologist delores WICK. Chart Review Chart Review: Acceptable Risk for Surgery and Patient seen in Pre Admission Testing Teaching & Discussion Pre-Anesthesia Teaching/Discussion Notes: Instructed NPO after midnight before surgery, except medications with 15 cc of water. Medication instructions provided according to the PAT guidelines. History Surgery Operation Date: 07/19/24 07:45 Proposed Procedures p L4-L5 Decompression and Fusion - Mookie Franklin, Height/Weight Height: 5 ft 1.5 in Weight: 73.5 kg Allergies Allergy/AdvReac Type Severity Reaction Status Date / Time ciprofloxacin [From Cipro] Allergy Intermediate Hives Verified 06/16/24 07:47 metronidazole [From Flagyl] Allergy Intermediate Hives Verified 06/16/24 07:47 Sulfa (Sulfonamide Allergy Intermediate ANGIOEDEMA Verified 06/16/24 07:47 Antibiotics) adhesive Allergy Unknown SKIN Verified 06/16/24 07:47 IRRITATION morphine AdvReac Severe SEVERE Verified 06/16/24 07:47 NAUSEA AND VOMITING bee venom Allergy Uncoded 06/16/24 07:47 Medications Home Medications Medication Instructions Recorded Confirmed Last Taken loratadine 10 mg tablet (Claritin) 10 mg PO DAILY PRN Allergy Symptoms 10/28/22 06/16/24 07/09/23 magnesium 200 mg tablet 400 mg PO QPM 10/28/22 06/16/24 07/14/23 calcium carbonate 600 mg-vitamin 1 tab PO DAILY 10/16/23 09/26/24 10/24/23 D3 5 mcg (200 unit) tablet fluticasone propionate 50 2 spray intranasal DAILY PRN 07/06/23 06/16/24 Unknown mcg/actuation nasal Congestion spray,suspension multivitamin 1 tab PO DAILY 07/06/23 06/16/24 07/14/23 cod liver oil 1 tab PO DAILY 11/13/23 06/16/24 Unknown coenzyme Q10 100 mg capsule (Co 100 mg PO DAILY 11/13/23 06/16/24 Unknown Q-10) epinephrine 0.3 mg/0.3 mL 0.3 mg (0.3 mL) IM Q10M PRN 12/03/23 06/16/24 Unknown injection, auto-injector (EpiPen anaphylaxis #2 ea 2-Roger) celecoxib 200 mg capsule (Celebrex) 200 mg PO DAILY #90 caps 04/11/24 06/16/24 Unknown levothyroxine 50 mcg tablet 50 mcg PO QAM #90 tabs 04/11/24 06/16/24 Unknown Past Medical History Medical History (Updated 06/16/24 @ 09:42 by Michelle Jerez PA-C) Acid reflux controlled, stable per pt Allergic rhinitis Benign paroxysmal positional vertigo states improved w/ claritin and vitamin supplements Hyperlipidemia Hypothyroidism Lumbar stenosis Migraines Osteoarthritis Osteopenia Sensorineural hearing loss Slow to wake up after anesthesia Patient denies h/o stroke, seizures, heart attack, heart failure, DM, HTN, blood clots/DVTs or blood transfusions. Exercise / Class Metabolic Activity II 4-5 Yardwork/Stairs/Walk up hill (denies chest discomfort or shortness of breath with one flight of stairs) Past Family History Family History Father Anxiety Cardiac disorder Diabetes Gallbladder disease Kidney disease Myocardial infarction age 65 Hypertension Heart disease Brother Anxiety Depression Kidney stone Mother , December 2022 Hypertension Dementia Grandmother Ovarian cancer age 85 Cancer Grandfather Hearing loss Brother , March 2023 Tongue cancer Denies family history of Colon cancer Prostate cancer No family history of adverse response to anesthesia No family history of bleeding disorder Allergies Breast cancer Stroke Asthma Past Surgical History Surgical History (Updated 06/16/24 @ 09:42 by Michelle Jerez PA-C) Difficult intravenous access H/O arthroscopic knee surgery Right knee- 1995, 2001 H/O section H/O lumpectomy [id number] History of hand surgery Left [facility] 2011 Right [facility] Joint 2017 History of total left knee replacement (2009) Left total knee arthroplasty with Gonzalez Nephew total joint arthroplasty utilizing sizes 4 femur, 2 tibia, 9 spacer posterior constrained, and 32 patella History of total right knee replacement (2002) Hx of colonoscopy Hx of hysterectomy (2010) d/t endometriosis Nausea and vomiting after administration of anesthetic agent denies needing scop patch S/P appendectomy S/P cholecystectomy S/P revision of total knee left S/P shoulder surgery (2007) rt Status post left knee replacement (11/19/22) L knee poly exchange of L TKA Past Anesthesia History No Family Hx of Anesthesia Complications and Other (slow to wake) History of PONV History of PONV (denies having scop patch in the past) and Hx of Motion Sickness Social History Smoking Status: Never smoker Do You Dip or Chew Tobacco: No Hx Alcohol Use: Yes Alcohol type: wine alcohol intake frequency: holidays/special occasions only Hx Substance Use: No substance use type: does not use Review of Systems Snoring, denies witnessed apneas. Patient denies chest pain, shortness of breath, dyspnea on exertion, fever, chills, cough, wheezing, or palpitations. Physical Exam Vital Signs Vitals BP 116/73 P 55 TEMP 98.0 SP02 98% on RA RESP 18 Physical Patient resting comfortably in chair in no acute distress, alert and oriented, responding appropriately throughout visit Full cervical extension range of motion without pain TMD 3.5 finger breadths Mallampati Score 2 Dentition: one cap, denies chipped or loose teeth, crowns, implants or bridges Lungs: normal respiratory effort. Good air movement, clear throughout to auscultation, no adventitious breath sounds Cardiac: regular rate and rhythm, no murmurs noted Carotid arteries: negative bruit bilat Lab Results Anesthesia Preop Results Results Anesthesia Widget: WBC 9.81 K/ul (4.8-10.8) 06/16/24 Hgb 13.7 g/dl (12.0-16.0) 06/16/24 Hct 41.9 % (37.0-47.0) 06/16/24 Plt 383 K/uL (130-400) 06/16/24 Na 137 mmol/L (136-145) 06/16/24 K 4.1 mmol/L (3.5-5.1) 06/16/24 Cl 101 mmol/L (98-107) 06/16/24 CO2 31 mmol/L (21-32) 06/16/24 BUN 16 mg/dl (6-23) 06/16/24 Creat 0.87 mg/dl (0.6-1.2) 06/16/24 Glucose Level 79 mg/dl (70-99(Fasting)) 06/16/24 PT 10.3 Seconds (9.0-12.0) 06/16/24 PTT 26 Seconds (21-31) 06/16/24 INR 0.9 (0.9-1.1) 06/16/24 Urine Color Yellow 06/16/24 Urine Appearance Clear (Clear) 06/16/24 Urine pH 7.0 (4.5-7.5) 06/16/24 Urine Specific [place] 1.007 (1.000-1.030) 06/16/24 Urine Protein Negative (Negative) 06/16/24 Urine Glucose (UA) Negative (Negative) 06/16/24 Urine Ketones Negative (Negative) 06/16/24 Urine Blood Negative (Negative) 06/16/24 Urine Nitrite Negative (Negative) 06/16/24 Urine Bilirubin Negative (Negative) 06/16/24 Urine Urobilinogen Negative (Negative) 06/16/24 Urine Leukocyte Esterase Negative (Negative) 06/16/24 Blood Type B Positive 06/16/24 Antibody Screen NEGATIVE 06/16/24 Testing Electrocardiogram Date: 06/16/24 Sinus bradycardia, rate 55 bpm Rightward axis Chest X-Ray Date: 06/16/24 No acute chest disease.
[~2024-07-19 10:03] MED LIST changes: -ACETAMINOPHEN 500 MG TAB PO SCH; -BUPIVACAINE 0.25% 30 ML VIAL ONE; -BUPIVACAINE 0.5 % 5 MG/1 ML PF 10ML VIAL ONE; -CeleBREX 200 MG CAP PO SCH; +DEXAMETHASONE SOD INJ 4 MG/ML VIAL ONE; -FAMOTIDINE 20 MG TAB PO SCH; -GABAPENTIN 600 MG DOSE PO SCH; +LIDOCAINE 2% 2 ML VIAL/AMP(20MG/ML) INFIL ONE; -LR 500ML BOLUS, THEN 15ML/HR IV SCH; -METOCLOPRAMIDE HCL 10 MG TABLET PO SCH; +MIDAZOLAM HCL 1 MG/ML 2ML VIAL ONE; +ONDANSETRON INJ 2 MG/ML 2 ML VIAL ONE; +PROPOFOL IV EMULSION 10 MG/ML 20 ML VIAL IV ONE; +ROCURONIUM BROMIDE 10 MG/ML 5 ML VIAL IV ONE; -ROPIVACAINE 0.5% HCL/PF 150 MG, BUPIVACAINE 0.75% MPF 20 ML, EPINEPHrine 0.15 MG, Ketor... INFIL SCH; -ceFAZolin 2000MG 2,000 MG/15 ML SYR IV SCH; -dexAMETHasone 4 MG TAB PO SCH; +fentaNYL citrate PF 100 MCG/2 ML VIAL ONE
[2024-07-19] MEDS: LR 15ML/HR IV SCH (10:53)
[2024-07-19] MEDS: ACETAMINOPHEN 500 MG TAB PO SCH (10:53)
[2024-07-19] MEDS: GABAPENTIN 300 MG CAP PO SCH (10:53)
[2024-07-19] MEDS: LR 60ML/HR IV SCH (10:53)
[2024-07-19] MEDS: VANCOMYCIN HCL 1,000 MG/270 ML BAG IV SCH (11:38)
[2024-07-19] MEDS ORDERED: ATROPINE SULFATE 0.1 MG/ML 10ML SYR IV PRN (11:53)
[2024-07-19] MEDS ORDERED: ePHEDrine sulfate 50 MG/ML AMP IV PRN (11:53)
[2024-07-19] MEDS ORDERED: ONDANSETRON INJ 2 MG/ML 2 ML VIAL IV PRN (11:53)
[2024-07-19] MEDS: SCOPOLAMINE 1 MG/72 HR TDSY PATCH TD ONE (12:00)
--- NOTE | 2024-07-19 12:40 | History & Physical Bridge Note ---
Date of Service July 19, 2024 History & Physical Bridge Note I have examined the patient, reviewed the History & Physical and in the interval since the performance of the History & Physical I have noted the following changes of clinical significance: no changes noted
--- NOTE | 2024-07-19 12:41 | History & Physical Report ---
Date of Service July 19, 2024 Assessment & Plan (1) Lumbar spinal stenosis: Plan: L4-5 decompression and fusion History of Present Illness Chief Complaint: Back and leg pain Primary Care Provider: Trina Dial DO This is a 68-year-old female resents with chronic persistent back and leg pain after failing course of nonoperative care is here for surgical invention. Allergies Allergy/AdvReac Type Severity Reaction Status Date / Time ciprofloxacin [From Cipro] Allergy Intermediate Hives Verified 07/19/24 10:32 metronidazole [From Flagyl] Allergy Intermediate Hives Verified 07/19/24 10:32 Sulfa (Sulfonamide Allergy Intermediate ANGIOEDEMA Verified 07/19/24 10:32 Antibiotics) adhesive Allergy Unknown SKIN Verified 07/19/24 10:32 IRRITATION morphine AdvReac Severe SEVERE Verified 07/19/24 10:32 NAUSEA AND VOMITING bee venom Allergy Itching Uncoded 07/19/24 10:32 Home Medications Medication Instructions Recorded Confirmed Type loratadine 10 mg tablet (Claritin) 10 mg PO DAILY PRN Allergy Symptoms 10/28/22 07/19/24 History magnesium 200 mg tablet 400 mg PO QPM 10/28/22 07/19/24 History calcium 600 mg (as 1 tab PO DAILY 07/06/23 07/19/24 History carbonate)-vitamin D3 5 mcg (200 unit) tablet fluticasone propionate 50 2 spray intranasal DAILY PRN 07/06/23 06/16/24 History mcg/actuation nasal Congestion spray,suspension multivitamin 1 tab PO DAILY 07/06/23 07/19/24 History cod liver oil 1 tab PO DAILY 11/13/23 07/19/24 History coenzyme Q10 100 mg capsule (Co 100 mg PO DAILY 11/13/23 07/19/24 History Q-10) epinephrine 0.3 mg/0.3 mL 0.3 mg (0.3 mL) IM Q10M PRN 12/03/23 06/16/24 Rx injection, auto-injector (EpiPen anaphylaxis #2 ea 2-Roegr) celecoxib 200 mg capsule (Celebrex) 200 mg PO DAILY #90 caps 04/11/24 07/19/24 Rx levothyroxine 50 mcg tablet 50 mcg PO QAM #90 tabs 04/11/24 07/19/24 Rx Vitamin D3 5,000 units BID 07/19/24 07/19/24 History Past Med/Surg History Problem List Lumbar spinal stenosis Spondylolisthesis, lumbar region Hyperlipidemia Osteopenia Rhinitis Retraction pocket of tympanic membrane Bilateral tinnitus Sensorineural hearing loss (SNHL) of both ears Allergic rhinitis Benign paroxysmal positional vertigo Generalized osteoarthritis of multiple sites Hypothyroidism Migraine headache Medical History Slow to wake up after anesthesia Sensorineural hearing loss Osteopenia Hyperlipidemia Lumbar stenosis Allergic rhinitis Osteoarthritis Hypothyroidism Migraines Benign paroxysmal positional vertigo states improved w/ claritin and vitamin supplements Acid reflux controlled, stable per pt Surgical History Difficult intravenous access S/P revision of total knee left Status post left knee replacement (11/19/22) L knee poly exchange of L TKA History of hand surgery Left [facility] Joint 2011 Right [facility] Joint 2016 H/O arthroscopic knee surgery Right knee- 1995, 2001 Hx of colonoscopy Nausea and vomiting after administration of anesthetic agent denies needing scop patch H/O lumpectomy [id number] History of total right knee replacement (2002) History of total left knee replacement (2009) Left total knee arthroplasty with Gonzalez Nephew total joint arthroplasty utilizing sizes 4 femur, 2 tibia, 9 spacer posterior constrained, and 32 patella S/P shoulder surgery (2007) rt Hx of hysterectomy (2010) d/t endometriosis S/P appendectomy H/O section S/P cholecystectomy Family History Father Anxiety Cardiac disorder Diabetes Gallbladder disease Kidney disease Myocardial infarction age 65 Hypertension Heart disease Brother Anxiety Depression Kidney stone Mother , December 2022 Hypertension Dementia Grandmother Ovarian cancer age 85 Cancer Grandfather Hearing loss Brother , March 2023 Tongue cancer Denies family history of Colon cancer Prostate cancer No family history of adverse response to anesthesia No family history of bleeding disorder Allergies Breast cancer Stroke Asthma Social History Smoking Status: Never smoker Second Hand Exposure: Yes (as a child); Do You Dip or Chew Tobacco: No; Tobacco Cessation Education Requested by Patient: No Hx Alcohol Use: Yes Alcohol type: wine Hx Substance Use: No Preferred Language: Malagasy Communication Ability: Effective Visual Impairment: No Limitations Hearing Ability: Normal Planimeter Operator Required: No Beliefs That Will Affect Care: None marital status: Current Living Situation: Spouse current occupational status: retired current occupation: works department head college or university at [employer] How many Children do You have: 1 Other Information That Helps Us Care for You: No Feels Safe at Home: Yes Safety Concerns: Feels Safe At This Time Childhood Exposure to Second-Hand Smoke: No Diet: regular caffeine: Yes during the past year weight has: remained stable Dental Care, Regularly: Yes Physical Activity Frequency: Daily Seatbelt Use: always Sunscreen Use: No Assistive Devices: Glasses Physical Exam Physical Exam: Patient is alert and oriented Heart regular in rhythm lungs clear Results & Data Results & Data Vital Signs (Past 12 Hours) Vital Signs Temp Pulse Resp BP Pulse Ox O2 Del Method 07/19/24 10:38 36.6 C 64 18 145/76 H 100 Room Air
[2024-07-19] MEDS ORDERED: SUGAMMADEX SODIUM 200 MG/2 ML VIAL IV ONE (13:36)
[2024-07-19] MEDS: BUPIVACAINE/EPINEPHRINE 0.25% 1:200,000 30 ML VIAL ONE (13:37)
[2024-07-19] MEDS ORDERED: PHENYLEPHRINE 100MCG/ML 5ML SYR ONE ×2 (13:39→14:06)
[2024-07-19] MEDS ORDERED: ROCURONIUM BROMIDE 10 MG/ML 5 ML VIAL IV ONE (13:53)
[2024-07-19] MEDS ORDERED: ePHEDrine sulfate 50 MG/ML AMP ONE (14:17)
[2024-07-19] MEDS: ceFAZolin 330 MG/ML 1 GM VIAL ONE (14:55)
[2024-07-19] MEDS ORDERED: MoRPHine SULFATE 2 MG/ML CARP ONE (15:06)
[2024-07-19] MEDS: FLOSEAL HEMOSTATIC MATRIX 10ML TOP ONE (15:08)
--- NOTE | 2024-07-19 15:23 | Fluoroscopy Report ---
FL lumbar spine 2-3V CLINICAL HISTORY: L3-L5 decompression and fusion. COMPARISON STUDY: None. FLUOROSCOPY TIME: 21 seconds. Ka, r: 17.53 mGy FLUOROSCOPIC IMAGES: 2 FINDINGS: Fluoroscopy was provided during L3-L5 decompression and fusion. There are interbody spacers at the L3-L4 and L4-L5 levels. There are bilateral pedicle screws at the L3, L4 and L5 levels with i nterconnecting rods. Hardware is intact. IMPRESSION: Fluoroscopy provided during L3-L5 decompression and fusion. ACT 112: Negative or not required by law. Electronically signed by: Raz Johnson M.D. 07/19/2024 3:22 PM
[2024-07-19] MEDS ORDERED: FLUMAZENIL 0.1 MG/1 ML 10 ML VIAL IV ONE (15:29)
--- NOTE | 2024-07-19 15:31 | Operative Report ---
Post Operative Report Pre & Post Diagnosis Operation Date: 07/19/24 12:05 Pre-Op Diagnosis: Spinal Stenosis Lumbar Region with Neurogenic Claudication Spondylolisthesis L4-L5 Post-Op Diagnosis: same I identified the patient and participated in the time-out.: Yes Procedure Operation Date: 07/19/24 12:05 Actual Procedures #1 lumbar decompression bilateral medial facetectomies and foraminotomies L3-L4 L4-L5. #2 posterior spinal fusion L3-L4 L4-L5. #3 placed posterior instrumentation L3-L5. #4 interbody fusion L3-L4 L4-L5 #5 placement of Spira 9 x 26 mm cage at L3-L4 and 10 x 22 mm cage x 2 at L4-L5. #6 placement locally harvested morselized autograft posterior gutters. #7 placement infuse collagen sponge combined with Koros in the posterior lateral gutters and os design in the interbody space. #8 application of versa wrap over the exposed dura. Surgeon Mookie Franklin, Hand Expansion Envelope Maker Rosa Brooks Estimated Blood Loss 200 Findings Consistent with Post-Op Diagnosis Specimens None Indications This is a 68-year-old female presents with above-mentioned diagnosis after failing extensive course of nonoperative care is here for surgical invention. Description of Procedure Patient was met with identified informed consent obtained. Patient was then taken to the operative suite underwent intubation placed in a prone position on the Yo table on top of the Marcus frame. All bony prominences well-padded eyes inspected to ensure no external pressure placed upon them. This point the lumbar spine was prepped and draped in normal sterile fashion. Sharp dissection with the assistance of Bovie cautery from down to and exposing the lamina and transverse processes of L4-L5. From caudal to cephalad fashion a complete laminectomy was performed including bilateral medial facetectomies and foraminotomies addressing severe spinal stenosis. I then performed a partial laminectomy of L3 but upon addressing the lateral recess stenosis was forced to perform an extensive laminectomy and bilateral facetectomies to adequately decompress the canal introducing iatrogenic instability and subsequently elected to fuse at this level as well. Pedicle screws then placed in L3-L4-L5 bilaterally with assistance of fluoroscopy the process carroll placed. By way of a transforaminal approach on the right a discectomy of L4-L5 was performed endplates guided to subcortical main bone and a 10 x 22 mm spiral cage filled os design tapped in position. Then proceeded to the left transforaminal region at L for L5. Again discectomy performed endplates guarded to subcortical bleeding bone and a second 10 x 22 mm spiral cage filled with os designed tapped into position. Then proceeded to L3-L4 by way of transforaminal approach on the left complete discectomy was performed endplates corrected to subcortical bleeding bone and a 9 x 26 mm spiral cage filled os design tapped in position. The rods were then compressed locked into final position bilaterally. The transverse processes of L3 L4-5 burred to subcortical and bone. Infuse collagen sponge combined with Koros and locally harvested morselized autograft placed in the posterior lateral gutters. Versa wrap placed over the exposed dura. 15 round DOTTIE drain inserted. The incision was then closed with 1 Vicryl the fascia 2-0 Vicryl subcutaneously and 4 Monocryl for final skin closure. Steri-Strips sterile dressing placed. Patient waken taken to PACU in stable condition. Please note spinal cord monitoring was utilized at the procedure no changes noted. Rosa Brooks was present at the entire surgery involved the patient positioning complex portions of the surgery and final skin closure. Im ordering 20 grams of Triple Franklin Collagen Powder ([employer] [id number]) to treat an incision wound that was caused by a spine procedure. The incision is approximately 2 cm(W) x 4 cm(L) into the joint (D) in size and is a full thickness wound. Triple Franklin collagen comes in 1 gram packets so 20 packets were ordered. Given the size of the wound, with light to moderate exudate I chose to order a 20 day supply. The patient will be provided instructions for proper application of the collagen wound kit. The patient will be asked to apply the collagen powder daily and then cover it with sterile dressings dispensed. Collagen was selected as I expect the collagen to attract monocytes and fibroblasts, act as a sacrificial substrate for MMPs, and ultimately proved a matrix for tissue and vessel growth. The collagen will act as a primary dressing in this scenario. It is medically necessary for proper healing of these wounds to improve bioavailability and contact with each wound surface, this is also to help prevent infection of wounds and promote healing ultimately leading to a better healing outcome and limit the risk of infection. I attest to the content of the Intraoperative Record and any orders documented therein. Any exceptions are noted below.
[2024-07-19] MEDS: fentaNYL citrate PF 100 MCG/2 ML VIAL IV PRN (15:50)
[2024-07-19] MEDS: HYDROmorphone INJ 1 MG/ML SYRINGE IV PRN (16:25)
--- NOTE | 2024-07-19 16:58 | Anesthesiology Progress Note ---
Date of Service July 19, 2024 Anesthesia Post Procedure Vital Signs Vital Signs: Temp Pulse Pulse Resp BP Pulse Ox O2 Del Method 07/19/24 16:45 36.4 C L 60 14 112/59 L 100 Nasal Cannula 07/19/24 16:35 63 15 115/58 L 98 Nasal Cannula 07/19/24 16:25 64 15 117/62 99 Nasal Cannula 07/19/24 16:15 72 15 106/64 100 Nasal Cannula 07/19/24 16:05 69 14 114/62 98 Nasal Cannula 07/19/24 15:55 63 13 115/60 96 Oxymask 07/19/24 15:45 79 22 129/60 99 Oxymask 07/19/24 15:36 36.3 C L 74 19 123/65 100 Oxymask 07/19/24 10:38 36.6 C 64 18 145/76 H 100 Room Air O2 Flow Rate 07/19/24 16:45 2 07/19/24 16:35 2 07/19/24 16:25 2 07/19/24 16:15 2 07/19/24 16:05 2 07/19/24 15:55 5 07/19/24 15:45 10 07/19/24 15:36 10 07/19/24 10:38 Pain Intensity Back: Pain Intensity: 2 Transfer of Care Handoff Completed per policy Notes Mental Status: alert / awake / arousable and participated in evaluation Patient Amnestic to Procedure: Yes Nausea / Vomiting: adequately controlled Pain: adequately controlled Airway Patency, RR, SpO2: stable & adequate BP & HR: stable & adequate Hydration State: stable & adequate Anesthetic Complications: no major complications apparent
[2024-07-19] MEDS ORDERED: SOD PHOSPHATE/SOD BIPHOSPHATE ENEMA 132 ML BTL PR PRN (17:13)
[2024-07-19] MEDS ORDERED: LORazepam 0.5 MG TAB PO PRN (17:13)
[2024-07-19] MEDS ORDERED: HYDROmorphone INJ 0.5 MG/0.5 ML SYR IV PRN (17:13)
[2024-07-19] MEDS ORDERED: ACETAMINOPHEN 1,000 MG/100 ML VIAL IV PRN (17:13)
[2024-07-19] MEDS ORDERED: diphenhydrAMINE Capsule 25 MG CAP PO PRN (17:13)
[2024-07-19] MEDS ORDERED: DO NOT ADMINISTER PNEUMOCOCCAL VACCINE PRN (17:13)
[2024-07-19] MEDS ORDERED: traMADol HCL 50 MG TABLET PO PRN (17:13)
[2024-07-19] MEDS ORDERED: LORATADINE 10 MG TAB PO PRN (17:13)
[2024-07-19] MEDS ORDERED: bisacodyL 10 MG SUPP PR PRN (17:13)
[2024-07-19] MEDS ORDERED: DO NOT ADMINISTER FLU VACCINE PRN (17:13)
[2024-07-19] MEDS ORDERED: MAGNESIUM HYDROXIDE SUSP 30 ML UDC PO PRN (17:13)
[2024-07-19] MEDS ORDERED: PROMETHAZINE 12.5 MG/50.5 ML BAG IV PRN (17:13)
[2024-07-19] MEDS ORDERED: hydrOXYzine HCl 25 MG TAB PO PRN (17:13)
[2024-07-19] MEDS ORDERED: LORazepam 2 MG/1 ML VIAL IV PRN (17:13)
[2024-07-19] MEDS ORDERED: METOCLOPRAMIDE HCL INJ 5 MG/ML 2 ML VIAL IV PRN (17:13)
[2024-07-19] MEDS ORDERED: NALOXONE HCL 0.4 MG/1 ML VIAL/CARP IV PRN (17:13)
[2024-07-19] MEDS ORDERED: FAMOTIDINE 20 MG TAB PO PRN (17:13)
[2024-07-19] MEDS ORDERED: ALUMINUM/MAGNESIUM SUSP 30 ML UDC PO PRN (17:13)
[2024-07-19] MEDS ORDERED: ONDANSETRON 4 MG OD TAB PO PRN (17:13)
[2024-07-19] MEDS ORDERED: HYDROmorphone INJ 1 MG/ML SYRINGE IV PRN (17:13)
[2024-07-19] MEDS ORDERED: EPINEPHrine INJ 1 MG/ML AMP IM PRN (17:29)
--- NOTE | 2024-07-19 17:51 | Hospitalist Consultation ---
Date of Consultation July 19, 2024 Assessment & Plan (1) Lumbar spinal stenosis: Lumbar stenosis s/p decompression and fusion 07/11/2024 200 cc estimated blood loss Patient with prior history of prolonged recovery from anesthesia Postoperative downtrending blood pressure 901 15 systolic Patient is on perioperative cefazolin/vancomycin Operative hypotension Patient with intermittent hypotension downtrending on afternoon review. 200 cc of blood loss IntraOp and about 60 cc of material into the DOTTIE drain Given downtrending blood pressure labs including CBC/BMP/INR were ordered for trending. Discussed with nursing, will follow CBC trend and DOTTIE output closely Patient is not tachycardic. She does have a scopolamine place and patch which is effective for nausea, notes she has had difficulty with nausea postop. She is mentating normally. If patient has progressive hypotension then would first remove scopolamine patch and see if this helps, and then evaluate for fluids versus colloid if indicated if persistently hypotensive On evening recheck BP improved 116/63, pulse 60. No acute change in management at this time Oral fluids encouraged Hypothyroidism Continue Synthroid DVT prophylaxis: Per primary team Disposition: MSO CODE STATUS: Full code Diet: Clears, advance per primary team (2) Hypothyroidism: History of Present Illness Attending Physician: Mookie Franklin, DO History of Present Illness Gloria is a 68-year-old female with a past medical history of lumbar spinal stenosis, hypothyroidism who presented for L4-L5 decompression and fusion with Dr. Franklin. We are consulted for postoperative medication management. Preoperative evaluation reviewed. Patient has a history of hypothyroidism stable on Synthroid. No CKD, normal liver function, borderline hyperlipidemia, METS estimated 410 without any limiting symptoms or signs of angina, does have a history of prolonged recovery from anesthesia in the past. Gloria is seen at the bedside. She reports that she feels somewhat tired after surgery and is both hungry and thirsty but otherwise feels well. Had a little lightheadedness postoperatively feels "okay "at time of bedside visit. She notes she had tingling and pain down her leg preoperatively which led to her surgery, she has no pain in her leg and sensation of soft touch is intact in the lower extremities bilaterally. She notes that a lot of her pain was on weightbearing so she is not sure what degree has improved as she has not been out of bed yet, but is hopeful. Denies fever chills or sweats. No shortness of breath or difficulty breathing. No cough. No chest pain or chest pressure. Endorses history of hypothyroidism, and slow recovery from anesthesia in the past with nausea. Currently she is not nauseous on a scopolamine patch. Denies tobacco/alcohol use. Full code. Allergies Allergy/AdvReac Type Severity Reaction Status Date / Time ciprofloxacin [From Cipro] Allergy Intermediate Hives Verified 07/19/24 10:32 metronidazole [From Flagyl] Allergy Intermediate Hives Verified 07/19/24 10:32 Sulfa (Sulfonamide Allergy Intermediate ANGIOEDEMA Verified 07/19/24 10:32 Antibiotics) adhesive Allergy Unknown SKIN Verified 07/19/24 10:32 IRRITATION morphine AdvReac Severe SEVERE Verified 07/19/24 10:32 NAUSEA AND VOMITING bee venom Allergy Itching Uncoded 07/19/24 10:32 Home Medications Medication Instructions Recorded Confirmed Type loratadine 10 mg tablet (Claritin) 10 mg PO DAILY PRN Allergy Symptoms 10/28/22 07/19/24 History magnesium 200 mg tablet 400 mg PO QPM 10/28/22 07/19/24 History calcium 600 mg (as 1 tab PO DAILY 07/06/23 07/19/24 History carbonate)-vitamin D3 5 mcg (200 unit) tablet fluticasone propionate 50 2 spray intranasal DAILY PRN 07/06/23 06/16/24 History mcg/actuation nasal Congestion spray,suspension multivitamin 1 tab PO DAILY 07/06/23 07/19/24 History cod liver oil 1 tab PO DAILY 11/13/23 07/19/24 History coenzyme Q10 100 mg capsule (Co 100 mg PO DAILY 11/13/23 07/19/24 History Q-10) epinephrine 0.3 mg/0.3 mL 0.3 mg (0.3 mL) IM Q10M PRN 12/03/23 06/16/24 Rx injection, auto-injector (EpiPen anaphylaxis #2 ea 2-Roger) celecoxib 200 mg capsule (Celebrex) 200 mg PO DAILY #90 caps 04/11/24 07/19/24 Rx levothyroxine 50 mcg tablet 50 mcg PO QAM #90 tabs 04/11/24 07/19/24 Rx Vitamin D3 5,000 units BID 07/19/24 07/19/24 History Patient History Medical History Slow to wake up after anesthesia Sensorineural hearing loss Osteopenia Hyperlipidemia Lumbar stenosis Allergic rhinitis Osteoarthritis Hypothyroidism Migraines Benign paroxysmal positional vertigo states improved w/ claritin and vitamin supplements Acid reflux controlled, stable per pt Surgical History Difficult intravenous access S/P revision of total knee left Status post left knee replacement (11/19/22) L knee poly exchange of L TKA History of hand surgery Left [facility] Joint 2011 Right [facility] Joint 2016 H/O arthroscopic knee surgery Right knee- 1995, 2001 Hx of colonoscopy Nausea and vomiting after administration of anesthetic agent denies needing scop patch H/O lumpectomy [id number] History of total right knee replacement (2002) History of total left knee replacement (2009) Left total knee arthroplasty with Gonzalez Nephew total joint arthroplasty utilizing sizes 4 femur, 2 tibia, 9 spacer posterior constrained, and 32 patella S/P shoulder surgery (2007) rt Hx of hysterectomy (2010) d/t endometriosis S/P appendectomy H/O section S/P cholecystectomy Family History Father Anxiety Cardiac disorder Diabetes Gallbladder disease Kidney disease Myocardial infarction age 65 Hypertension Heart disease Brother Anxiety Depression Kidney stone Mother , December 2022 Hypertension Dementia Grandmother Ovarian cancer age 85 Cancer Grandfather Hearing loss Brother , March 2023 Tongue cancer Denies family history of Colon cancer Prostate cancer No family history of adverse response to anesthesia No family history of bleeding disorder Allergies Breast cancer Stroke Asthma Social History Smoking Status: Never smoker Second Hand Exposure: Yes (as a child); Do You Dip or Chew Tobacco: No; Tobacco Cessation Education Requested by Patient: No Hx Alcohol Use: Yes Alcohol type: wine Hx Substance Use: No Preferred Language: Icelandic Communication Ability: Effective Visual Impairment: No Limitations Hearing Ability: Normal Inspector Tubes Required: No Beliefs That Will Affect Care: None marital status: Current Living Situation: Spouse current occupational status: retired current occupation: works party plan sales agent at [employer] How many Children do You have: 1 Other Information That Helps Us Care for You: No Feels Safe at Home: Yes Safety Concerns: Feels Safe At This Time Childhood Exposure to Second-Hand Smoke: No Diet: regular caffeine: Yes during the past year weight has: remained stable Dental Care, Regularly: Yes Physical Activity Frequency: Daily Seatbelt Use: always Sunscreen Use: No Assistive Devices: Glasses Physical Exam Physical Exam: General: A&Ox3. NAD. Cooperative. HEENT: Atraumatic, normocephalic. Vision and hearing grossly intact Pulm: CTAB A&P. -wheezes, -rales, -rhonchi. Symmetrical chest rise. No increased work of breathing. No respiratory distress. Cardiac: RRR, -mrg. Radial pulses intact and symmetrical. Abdominal: Nontender, nondistended, soft. BS present. DOTTIE drain in place draining approximately 60 cc of sanguinous material Extremities: Ankle dorsiflexion/plantarflexion 5/5, sensation of soft touch in lower extremities intact bilaterally without deficit. PT pulse intact bilaterally Results & Data Results & Data Vital Signs (Past 12 Hours) Vital Signs Temp Pulse Pulse Resp BP Pulse Ox O2 Del Method 07/19/24 17:21 36.4 C L 62 18 98/64 L 97 Room Air 07/19/24 17:00 67 15 105/55 L 99 Nasal Cannula 07/19/24 16:45 36.4 C L 60 14 112/59 L 100 Nasal Cannula 07/19/24 16:35 63 15 115/58 L 98 Nasal Cannula 07/19/24 16:25 64 15 117/62 99 Nasal Cannula 07/19/24 16:15 72 15 106/64 100 Nasal Cannula 07/19/24 16:05 69 14 114/62 98 Nasal Cannula 07/19/24 15:55 63 13 115/60 96 Oxymask 07/19/24 15:45 79 22 129/60 99 Oxymask 07/19/24 15:36 36.3 C L 74 19 123/65 100 Oxymask 07/19/24 10:38 36.6 C 64 18 145/76 H 100 Room Air O2 Flow Rate 07/19/24 17:21 07/19/24 17:00 2 07/19/24 16:45 2 07/19/24 16:35 2 07/19/24 16:25 2 07/19/24 16:15 2 07/19/24 16:05 2 07/19/24 15:55 5 07/19/24 15:45 10 07/19/24 15:36 10 07/19/24 10:38 PG Care Time/CCT Total # of Minutes Spent Total Time Spent with Patient: Total time spent is greater than 50% in coordination of care (as documented) at patient's floor/unit and/or counseling patient: Coding Level of Care Code 23615 IN/OBS CONSULT LVL 3,45M Diagnoses Lumbar spinal stenosis M48.061 Hypothyroidism E03.9
[2024-07-19] MEDS: CHECK SCOPOLAMINE PATCH PLACEMENT SCH (18:24)
[2024-07-19 18:28] LABS: Hemoglobin 12.1 g/dl (12.0-16.0); Mean Corpuscular Hemoglobin 31.2 pg (25.0-34.0); Mean Corpuscular Hgb Conc 32.7 g/dL (32.0-36.0); Mean Corpuscular Volume 95.4 fL (80.0-100.0); Mean Platelet Volume 9.6 fL (9.4-12.4); Platelet Count 343 K/uL (130-400); RDW Coefficient of Variation 13.2 % (11.5-14.5); RDW Standard Deviation 46.4 fL (36.4-46.3); Red Blood Count 3.88 M/uL (4.20-5.40); White Blood Count 17.79 K/ul (4.8-10.8)
[2024-07-19 18:46] LABS: BUN Creatinine Ratio 18.1 (10-20); Calcium 8.5 mg/dl (8.6-10.3); Creatinine Clr Calc Pharmacy 61.6 ml/min; Potassium 3.8 mmol/L (3.5-5.1)
[2024-07-19 18:51] LABS: Basophils # (auto) 0.07 K/uL (0.00-0.20); Basophils % (auto) 0.4 %; Immature Granulocytes # (auto) 0.16 K/uL (0.01-0.20); Immature Granulocytes % (auto) 0.9 %; Lymphocytes # (auto) 1.08 K/uL (1.20-3.40); Lymphocytes % (auto) 6.1 %; Monocytes # (auto) 0.15 K/uL (0.11-0.59); Monocytes % (auto) 0.8 %; Neutrophils # (auto) 16.33 K/uL (1.40-6.50); Neutrophils % (auto) 91.8 %
[2024-07-19 18:59] LABS: Prothrombin Time 10.8 Seconds (9.0-12.0)
[2024-07-19] MEDS: MAGNESIUM OXIDE 400 MG TAB PO SCH (19:42)
[2024-07-19] MEDS: oxyCODONE HCL IR 5 MG TAB (IMMEDIATE RELEASE) PO PRN (19:46)
[2024-07-19] MEDS: DOCUSATE SODIUM/SENNA 50/8.6MG TAB PO SCH (20:04)
[2024-07-19] MEDS: ceFAZolin 2000MG 2,000 MG/15 ML SYR IV SCH (22:26)
[2024-07-19 22:39] LABS: Hematocrit (blood only) 33.9 % (37.0-47.0); Hemoglobin 11.5 g/dl (12.0-16.0)
[2024-07-20] MEDS: LEVOTHYROXINE SODIUM 50 MCG TABLET PO SCH (05:55)
[2024-07-20] MEDS: POLYETHYLENE (MIRALAX) 17 GM PACK PO SCH (05:55)
[2024-07-20] MEDS: ONDANSETRON INJ 2 MG/ML 2 ML VIAL IV PRN (07:14)
[2024-07-20] MEDS: dexAMETHasone 6 MG in SYRINGE 0 ML IV SCH (08:11)
[2024-07-20] MEDS: LACTATED RINGER'S 1,000 ML IV ONE (08:14)
[2024-07-20] MEDS: CALCIUM 600MG + VIT D 400 IU TAB PO SCH (08:24)
[2024-07-20] MEDS: MULTIVITAMIN TAB PO SCH (08:24)
[2024-07-20 08:33] LABS: Basophils # (auto) 0.04 K/uL (0.00-0.20); Basophils % (auto) 0.2 %; Eosinophils # (auto) 0.03 K/uL (0.00-0.50); Eosinophils % (auto) 0.2 %; Hematocrit (blood only) 32.1 % (37.0-47.0); Hemoglobin 10.5 g/dl (12.0-16.0); Immature Granulocytes # (auto) 0.11 K/uL (0.01-0.20); Immature Granulocytes % (auto) 0.6 %; Lymphocytes # (auto) 2.61 K/uL (1.20-3.40); Lymphocytes % (auto) 14.3 %; Mean Corpuscular Hemoglobin 31.3 pg (25.0-34.0); Mean Corpuscular Hgb Conc 32.7 g/dL (32.0-36.0); Mean Corpuscular Volume 95.5 fL (80.0-100.0); Mean Platelet Volume 9.5 fL (9.4-12.4); Monocytes % (auto) 6.6 %; Neutrophils # (auto) 14.29 K/uL (1.40-6.50); Neutrophils % (auto) 78.1 %; Platelet Count 328 K/uL (130-400); RDW Coefficient of Variation 13.2 % (11.5-14.5); RDW Standard Deviation 46.4 fL (36.4-46.3); Red Blood Count 3.36 M/uL (4.20-5.40); White Blood Count 18.28 K/ul (4.8-10.8)
[2024-07-20 08:37] LABS: BUN Creatinine Ratio 14.9 (10-20); Calcium 8.3 mg/dl (8.6-10.3); Creatinine Clr Calc Pharmacy 69.1 ml/min; Potassium 3.9 mmol/L (3.5-5.1)
[2024-07-20] MEDS ORDERED: COD LIVER OIL PO SCH (09:00)
--- NOTE | 2024-07-20 11:18 | Orthopedic Progress Note ---
Date of Service July 20, 2024 Assessment & Plan (1) Lumbar spinal stenosis: Plan: We will start physical therapy. Monitor DOTTIE output hopefully discharge home next few days. Admission and Anticipated Discharge Date Admission Date: July 19, 2024 Subjective Patient's back pain is controlled leg symptoms improved Physical Exam Physical Exam: Patient is in bed. She is comfortable. Good strength testing. Results & Data Vital Signs (Past 12 Hours) Vital Signs Temp Pulse Resp BP BP Pulse Ox O2 Del Method 07/20/24 11:07 36.6 C 61 18 98/59 L 95 Room Air 07/20/24 09:19 110/70 07/20/24 08:54 102/61 07/20/24 07:52 82/52 L 07/20/24 07:16 36.6 C 62 18 92/56 L 86/53 L 93 Room Air 07/20/24 03:33 36.6 C 62 18 102/66 98 Room Air 07/19/24 23:24 36.4 C L 63 18 99/62 L 94 Room Air
[2024-07-20] MEDS: ACETAMINOPHEN 500 MG TAB PO PRN (13:23)
--- NOTE | 2024-07-20 21:00 | Hospitalist Progress Note ---
Date of Service July 20, 2024 Assessment & Plan (1) Lumbar spinal stenosis: Plan: 1) Lumbar spinal stenosis: Lumbar stenosis s/p decompression and fusion 07/11/2024 200 cc estimated blood loss Patient with prior history of prolonged recovery from anesthesia Postoperative downtrending blood pressure 901 15 systolic Patient is on perioperative cefazolin/vancomycin Operative hypotension Patient with intermittent hypotension downtrending on afternoon review. 200 cc of blood loss IntraOp and about 60 cc of material into the DOTTIE drain Given downtrending blood pressure labs including CBC/BMP/INR were ordered for trending. Discussed with nursing, will follow CBC trend and DOTTIE output closely Patient is not tachycardic. She does have a scopolamine place and patch which is effective for nausea, notes she has had difficulty with nausea postop. She is mentating normally. If patient has progressive hypotension then would first remove scopolamine patch and see if this helps, and then evaluate for fluids versus colloid if indicated if persistently hypotensive Blood pressure on the lower side this am 07/20, required IVF. Labs ordered which ruled out sepsis, anemia, debbi. Likely secondary to anesthesia. Oral fluids encouraged Hypothyroidism Continue Synthroid DVT prophylaxis: Per primary team Disposition: MSO CODE STATUS: Full code Diet: advance per primary team (2) Hypothyroidism: Admission and Anticipated Discharge Date Admission Date: July 19, 2024 Subjective 68 yo female reports no new symptoms aside from being nauseous in the AM. I was called by nurse as blood pressure was on the lower side. Review of Systems Review of Systems: All systems reviewed & are unremarkable except as noted in HPI & below Physical Exam Physical Exam: General: A&Ox3. NAD. Cooperative. HEENT: Atraumatic, normocephalic. Vision and hearing grossly intact Pulm: CTAB A&P. -wheezes, -rales, -rhonchi. Symmetrical chest rise. No increased work of breathing. No respiratory distress. Cardiac: RRR, -mrg. Radial pulses intact and symmetrical. Abdominal: Nontender, nondistended, soft. BS present. Results & Data Results & Data Vital Signs (Past 12 Hours) Vital Signs Temp Pulse Resp BP BP Pulse Ox O2 Del Method 07/20/24 20:01 36.8 C 62 18 115/70 97 Room Air 07/20/24 14:42 36.9 C 54 L 16 103/62 94 Room Air 07/20/24 11:07 36.6 C 61 18 98/59 L 95 Room Air 07/20/24 09:19 110/70 PG Care Time/CCT Total # of Minutes Spent Total Time Spent with Patient: Total time spent is greater than 50% in coordination of care (as documented) at patient's floor/unit and/or counseling patient: Coding Level of Care Code 04478 SUB INP/OBS CARE 2/35MIN Diagnoses Lumbar spinal stenosis M48.061 Hypothyroidism E03.9
--- NOTE | 2024-07-21 08:38 | Orthopedic Progress Note ---
Date of Service July 21, 2024 Assessment & Plan (1) Lumbar spinal stenosis: Plan: Gloria is postoperative day 2 status post lumbar decompression and fusion L3 5. Will continue with aggressive bowel regimen. Maintain DOTTIE drain. Continue with pain control. DVT prophylaxis is in the form teds and SCDs., Check an H&H this morning due to her hypotension yesterday. And anticipate discharge home tomorrow Admission and Anticipated Discharge Date Admission Date: July 19, 2024 Subjective Gloria is postoperative day 2 status post L3-5 decompression and fusion. Leg symptoms greatly improved. She has some back pain mostly when transition changes. She had a bowel movement. DOTTIE drain output last shift was 70 cc. Yesterday in physical therapy Ambulating at 175 feet. Was having some hypotensive issues yesterday. Review of Systems Review of Systems: All systems reviewed & are unremarkable except as noted in HPI & below Physical Exam Physical Exam: Alert and oriented x 3 Ambulatory around the room with a walker Lumbar dressing is clean dry and intact with functioning DOTTIE drain strength intact bilateral lower extremities calf soft nontender bilaterally Results & Data Vital Signs (Past 12 Hours) Vital Signs Temp Pulse Resp BP Pulse Ox O2 Del Method 07/21/24 08:06 36.7 C 60 16 100/63 98 Room Air
[2024-07-21 09:25] LABS: Hematocrit (blood only) 32.7 % (37.0-47.0); Hemoglobin 10.5 g/dl (12.0-16.0)
--- NOTE | 2024-07-21 22:50 | Hospitalist Progress Note ---
Date of Service July 21, 2024 Assessment & Plan (1) Lumbar spinal stenosis: Plan: 1) Lumbar spinal stenosis: Lumbar stenosis s/p decompression and fusion 07/11/2024 200 cc estimated blood loss Patient with prior history of prolonged recovery from anesthesia Postoperative downtrending blood pressure 901 15 systolic Patient is on perioperative cefazolin/vancomycin Operative hypotension Patient with intermittent hypotension downtrending on afternoon review. 200 cc of blood loss IntraOp and about 60 cc of material into the DOTTIE drain Given downtrending blood pressure labs including CBC/BMP/INR were ordered for trending. Discussed with nursing, will follow CBC trend and DOTTIE output closely Patient is not tachycardic. She does have a scopolamine place and patch which is effective for nausea, notes she has had difficulty with nausea postop. She is mentating normally. If patient has progressive hypotension then would first remove scopolamine patch and see if this helps, and then evaluate for fluids versus colloid if indicated if persistently hypotensive Blood pressure on the lower side this am 07/20, required IVF. Labs ordered which ruled out sepsis, anemia, debbi. Likely secondary to anesthesia. Oral fluids encouraged Given vitals have been stable on 07/21, medicine will sign off the case. Thank you for allowing us to participate in her care. Hypothyroidism Continue Synthroid DVT prophylaxis: Per primary team Disposition: MSO CODE STATUS: Full code Diet: advance per primary team (2) Hypothyroidism: Admission and Anticipated Discharge Date Admission Date: July 19, 2024 Subjective Patient reports feeling well. She has no new complaints. Physical Exam Physical Exam: General: A&Ox3. NAD. Cooperative. HEENT: Atraumatic, normocephalic. Vision and hearing grossly intact Pulm: CTAB A&P. -wheezes, -rales, -rhonchi. Symmetrical chest rise. No increased work of breathing. No respiratory distress. Cardiac: RRR, -mrg. Radial pulses intact and symmetrical. Abdominal: Nontender, nondistended, soft. BS present. Results & Data Results & Data Vital Signs (Past 12 Hours) Vital Signs Temp Pulse Resp BP Pulse Ox O2 Del Method 07/21/24 20:00 36.8 C 62 16 127/74 96 Room Air 07/21/24 19:01 36.9 C 61 12 119/66 96 Room Air 07/21/24 18:56 36.9 C 61 12 119/66 96 Room Air 07/21/24 15:07 36.7 C 62 12 106/67 96 Room Air PG Care Time/CCT Total # of Minutes Spent Total Time Spent with Patient: Total time spent is greater than 50% in coordination of care (as documented) at patient's floor/unit and/or counseling patient: Coding Level of Care Code 76936 SUB INP/OBS CARE 2/35MIN Diagnoses Lumbar spinal stenosis M48.061 Hypothyroidism E03.9
[2024-07-22 07:19] VITALS: PULSE 63; RESP 18; TEMP 98.1; O2SAT 97
--- NOTE | 2024-07-22 09:47 | Discharge Summary ---
Date of Service July 22, 2024 Admission HPI Per Admitting Provider This is a 68-year-old female resents with chronic persistent back and leg pain after failing course of nonoperative care is here for surgical invention. Principal Diagnosis Lumbar spinal stenosis with spondylolisthesis and neurogenic claudication Discharge Data Allergies Allergy/AdvReac Type Severity Reaction Status Date / Time ciprofloxacin [From Cipro] Allergy Intermediate Hives Verified 07/19/24 10:32 metronidazole [From Flagyl] Allergy Intermediate Hives Verified 07/19/24 10:32 Sulfa (Sulfonamide Allergy Intermediate ANGIOEDEMA Verified 07/19/24 10:32 Antibiotics) adhesive Allergy Unknown SKIN Verified 07/19/24 10:32 IRRITATION morphine AdvReac Severe SEVERE Verified 07/19/24 10:32 NAUSEA AND VOMITING bee venom Allergy Itching Uncoded 07/19/24 10:32 Consultations 07/19/24 17:13 Consult Hospitalist Routine Procedures Performed Operation Date: 07/19/24 12:05 Actual Procedures p Lumbar decompression bilateral medial facetectomies and foraminotomies L3-L4 L4-L5, posterior spinal fusion L3-L4 L4-L5, placed posterior instrumentation L3- L5, interbody fusion L3-L4 L4-L5, placement of Spira 9 x 26 mm cage at L3-L4 and 10 x 22 mm cage x 2 at L4-L5, placement locally harvested morselized autograft posterior gutters, placement infuse collagen sponge combined with Koros in the posterior lateral gutters and os design in the interbody space, application of versa wrap over the exposed dura(Not Applicable) - Mookie Franklin DO Ordered Studies 07/19/24 07:00 FL lumbar spine 2-3V Routine Hospital Course (1) Lumbar spinal stenosis: Patient underwent multilevel lumbar depression fusion tolerated as well as taken orthopedic for postoperative. Postop patient progressed appropriately. Marked improvement of her leg pain. Back pain controlled. DOTTIE drain decreasing. Extra strength testing. Subsidy discharged home. Discharge orders instructions from the chart for further view. Total Time Total Time Spent Total Time Spent (In Minutes): 20 minutes Discharge Plan Discharge Items Patient Disposition: Home - Self-Care Reason For Visit: Spinal Stenosis Lumbar Region with Neurogenic Sarah Discharge Diagnosis: Lumbar spinal stenosis with neurogenic claudication Activity: As commented below Non-emergency contact: Primary Care Provider Call non-emergency contact if: you have any medication questions Follow-up/Referrals: Trina Dial [Primary Care Provider] - Diet: Regular Addtl Attending Provider Instructions: ACTIVITY RECOMMENDATIONS: SELF CARE INSTRUCTIONS AFTER THORACIC/LUMBAR FUSIONS 1. You may walk to your tolerance. It is good exercise for your legs and back. Expect some back and intermittent leg aches and pains. 2. You may perform "counter-top" level activities (make a sandwich, frida with a project, etc.). 3. No bending or lifting of more than 10 pounds or back twisting of any nature (roll like a log when turning in bed). 4. You may ride in a car for 20-30 minutes at a time. No driving until after your first visit with your doctor. 5. Frequent changes of position and restricting sitting to 30 minutes at a time will help limit the amount of back spasms and stiffness you may experience. 6. You may discontinue the use of ambulatory aids (cane, crutches, etc.) once your strength and confidence allow. 7. You may spring coiling machine setter the shower and let water strike your incision when you arrive home at least once daily. Do not take a tub bath, sit in a hot tub or go into a swimming pool until after your first recheck in the office. 8. You may resume previous diet. SPECIAL CARE INSTRUCTIONS: VERY IMPORTANT TO READ AND REVIEW A. Your surgical incision has been closed with a cosmetic suture under the skin that will dissolve in about 6 weeks. In 14 days, you can use a pair of clean scissors and cut the suture that is left outside of the skin at the ends of your incision. 1. The small skin tapes can be removed 7 days after surgery if they have not fallen off by that point. 2. You may keep the wound open to air as much as possible to promote healing after post-op day number 5 unless told otherwise by your doctor. 3. If you think the wound looks like it is becoming infected (redness or worsening drainage) and/or you are experiencing fever, chill or worsening back pain and muscle spasms, contact the office so that we may evaluate you as soon as possible. B. Complications are uncommon, but please contact us if you have any signs or symptoms of: 1. wound infection (fever higher than 102.5 degrees F, redness, separation of wound, drainage, or increasing pain from the incision) 2. blood clots in legs (pain, swelling, redness and warmth in legs) 3. urinary tract infection (fever higher than 102.5 degrees F, burning upon urination or increased frequency of urination) 4. nerve problems (inability to walk on your toes or heels, numbness, loss of bowel or bladder control) 5. any other symptoms that concern you C. Please call the office at if you have any concerns or questions about your operation or recovery. D. No smoking! Smoking drastically decreases the chance of a solid fusion. E. Do not take any anti-inflammatory medications (Indocin, Advil, Motrin, Aspirin, Naprosyn, etc.) as these may inhibit the chance of a solid fusion. Tylenol is okay to take for pain. MANAGING PAIN AFTER SPINAL SURGERY 1. Narcotic medication is intended for short-term use and will be provided for surgical pain. Surgical pain usually lasts for a period of 4-6 weeks. Narcotic medication includes Percocet, Vicodin, Darvocet, Tylenol #3 or Lortab. 2. Longer-term pain is more appropriately treated with non-narcotic medication such as Tylenol ES. 3. Muscle spasm is not appropriately treated with narcotics. Muscle relaxers such as Soma, Flexeril or Skelaxin can be used along with Tylenol ES. 4. Remember that we all live with some "aches and pains". This is not unusual or uncommon after an injury or as we get older. a. Back pain is expected and may include muscle spasms for 4 to 6 weeks after surgery. The pain should gradually improve. If the pain worsens for no apparent reason, please contact the office. b. Intermittent leg pain may also be experienced and should not be concerned about unless it worsens for no apparent reason. If so, please contact the office. 5. We will provide appropriate medication within the normal guidelines of their prescribed use. We will also be very cautious and aware of potential abuse and extended duration of patients' medication needs. a. Pain medications are for your comfort and to assist with sleep and rest so that the tissue can heal. They are not provided in order to return to normal activity and should not be used through the day. To do so or worsening pain at night can result from ongoing tissue damage and development of tolerance to the prescribed medicine. 6. Please allow 2-3 days to process refills. Prescriptions will not be mailed but must be picked up at the office. FOLLOW UP VISIT: Keep your scheduled follow-up appointment. Any questions, please call the office at . Pending Studies at Discharge: No Stand-Alone Forms: My [facility] [id number], Smoking Cessation Medications and DC Order Prescriptions: New tramadol 50 mg tablet 50 mg PO Q6H PRN (Reason: pain, moderate) Qty: 30 0RF oxycodone 5 mg tablet 5 mg PO Q6H PRN (Reason: pain) Qty: 30 0RF Continued epinephrine [EpiPen 2-Roger] 0.3 mg/0.3 mL auto-injector 0.3 mg IM Q10M PRN (Reason: anaphylaxis) Qty: 2 1RF Rx Instructions: for 2 doses levothyroxine 50 mcg tablet 50 mcg PO QAM Qty: 90 1RF coenzyme Q10 [Co Q-10] 100 mg capsule 100 mg PO DAILY cod liver oil 1 tab PO DAILY magnesium 200 mg Tablet 400 mg PO QPM loratadine [Claritin] 10 mg Tablet 10 mg PO DAILY PRN (Reason: Allergy Symptoms) calcium carbonate-vitamin D3 600 mg-5 mcg (200 unit) Tablet 1 tab PO DAILY fluticasone propionate 50 mcg/actuation spray,suspension 2 spray intranasal DAILY PRN (Reason: Congestion) Patient Comments: HAS NOT USED Rx Instructions: administer into each nostril multivitamin Tablet,Chewable 1 tab PO DAILY Vitamin D3 5,000 units BID Discontinued celecoxib [Celebrex] 200 mg capsule 200 mg PO DAILY Qty: 90 1RF Discharge Orders: Discharge Order (Routine); Ordered 07/22/24 Ordered By: Mookie Franklin Admission Data Admit Date/Time: 07/19/24 15:34 Attending Provider: Mookie Franklin Admit Provider: Mookie Franklin Primary Care Provider: Trina Dial. Other Providers: Ricardo Degroot
[2024-07-22 10:39] VITALS: BP 110/70
== END 2024-07-22 12:37 | disposition home or self-care (01) | DRG 427 ==
LOC: ASU 10:03 → 3E 15:34